=== PATIENT | male | born 1955 | race Caucasian/White ===

== ENCOUNTER 2016-05-22 12:40 | Emergency (ER) | payer MEDICARE, MEDICAID ==
[2016-05-22] MEDS ORDERED: Aspirin Low Dose CHEW TAB* 81 MG PO ONE (13:41)
[2016-05-22] MEDS ORDERED: Sucralfate TAB* 1 GM PO ONE ×2 (13:43→17:14)
[2016-05-22] MEDS ORDERED: Pantoprazole IV* 40 MG IV ONE (13:43)
[2016-05-22 14:19] LABS: Hematocrit 43 % (42-52); Hemoglobin 14.5 g/dl (14.0-18.0); Mean Corpuscular HGB Conc 34 g/dl (31-36); Mean Corpuscular Hemoglobin 30 pg (27-31); Mean Corpuscular Volume 89 fL (80-94); Mean Platelet Volume 8 um3 (7.4-10.4); Red Blood Count 4.88 10^6/ul (4.0-5.4); Red Cell Distribution Width 13 % (10.5-15); White Blood Count 12.7 10^3/ul (3.5-10.8)
--- NOTE | 2016-05-22 14:19 | RAD ---
HISTORY: Chest pain COMPARISONS: January 09, 2014 VIEWS:1: Single frontal portable view of the chest at 2:00 PM FINDINGS: LINES AND TUBES: None. CARDIOMEDIASTINAL SILHOUETTE: The cardiomediastinal silhouette is normal for portable technique. PLEURA: The costophrenic angles are sharp. No pleural abnormalities are noted. LUNG PARENCHYMA: The lungs are clear. ABDOMEN: The upper abdomen is clear. There is no subphrenic gas. BONES AND SOFT TISSUES: No bone or soft tissue abnormalities are noted. IMPRESSION: NO ACTIVE CARDIOPULMONARY DISEASE.
[2016-05-22 14:36] LABS: Albumin 3.8 g/dL (3.2-5.2); BUN/Creatinine Ratio 18.3 (8-20); Calcium 8.8 mg/dL (8.6-10.3); EGFR African American 79.7 (>60); Globulin 3.4 g/dL (2-4); Potassium 4.5 mmol/L (3.5-5.0); Total Bilirubin 0.4 mg/dL (0.2-1.0); Total Protein 7.2 g/dL (6.4-8.9)
[2016-05-22 17:40] VITALS: BP 146/84
--- NOTE | 2016-05-22 21:43 | ED ---
Bee Harry Erika, scribed for Brooks Matos MD on 05/22/16 at 1412 . HPI Chest Pain - HPI Summary HPI Summary: Patient is a 60-year-old male presenting to the ED with a CC of stabbing, lower- sternal chest pain and epigastric pain starting a few days ago. Patient reports that pain is aggravated by palpation. He states associated symptoms of dizziness , diaphoresis, and nausea intermittently. Patient reports he has not taken his psychotropic medication in 2 days due to the nausea. He denies vomiting, but notes dry heaving. FHx cancer in father - at age 53. Mother is alive at age 94. Patient is a former smoker who quit 6 months ago. - History of Current Complaint Chief Complaint: EDChestPainROMI Time Seen by Provider: 05/22/16 13:31 Hx Obtained From: Patient Onset/Duration: Started Days Ago, Atraumatic, Still Present Current Severity: Moderate Pain Intensity: 6 Pain Scale Used: 0-10 Numeric Chest Pain Location: Lower Sternal Chest Pain Radiates To:: Epigastric Character: Sharp/Stabbing Aggravating Factor(s): Other: - Palpation Associated Signs and Symptoms: Positive: Dizziness, Diaphoresis, Nausea. Negative: Vomiting - Allergy/Home Medications Allergies/Adverse Reactions: Allergies Allergy/AdvReac Type Severity Reaction Status Date / Time No Known Allergies Allergy Verified 09/03/15 10:10 PMH/Surg Hx/FS Hx/Imm Hx Endocrine/Hematology History: Denies: Other Endocrine/Hematological Disorders Cardiovascular History: Reports: Hx Hypertension - ON MEDICATION Denies: Other Cardiovascular Problems/Disorders Respiratory History: Denies: Other Respiratory Problems/Disorders GI History: Denies: Other GI Disorders History: Reports: Hx Kidney Stones - 2011 Denies: Other Problems/Disorders Musculoskeletal History: Reports: Hx Back Problems - chronic back pain. unknown cause Denies: Other Musculoskeletal History Sensory History: Reports: Hx Contacts or Glasses Denies: Hx Cataracts, Hx Eye Injury, Hx Eye Prosthesis, Hx Glaucoma, Hx Macular Degeneration, Hx Vision Problem, Hx Deafness, Hx Hearing Aid, Hx Hearing Problem, Other Sensory Impairments Opthamlomology History: Reports: Hx Contacts or Glasses Denies: Hx Cataracts, Hx Eye Injury, Hx Eye Prosthesis, Hx Glaucoma, Hx Macular Degeneration, Hx Vision Problem, Other Sensory Impairments Neurological History: Denies: Other Neuro Impairments/Disorders Psychiatric History: Reports: Hx Anxiety, Hx Depression, Hx Inpatient Treatment , Hx Community Mental Health Tx, Hx Schizophrenia, Hx Suicide Attempt Denies: Hx Attention Deficit Hyperactivity Disorder, Hx Panic Disorder, Hx Post Traumatic Stress Disorder, Hx Bipolar Disorder, Hx of Violent Episodes Against Others, Hx Substance Abuse, Other Psychiatric Issues/Disorders Comment Only: Hx Eating Disorder - poor appetite - Surgical History Surgery Procedure, Year, and Place: kidney stones 2012 Hx Anesthesia Reactions: No - Immunization History Date of Tetanus Vaccine: PT STATES UNSURE Date of Influenza Vaccine: NONE Infectious Disease History: Denies: Hx Clostridium Difficile, Hx Hepatitis, Hx Human Immunodeficiency Virus (HIV), Hx Shingles, Hx Tuberculosis, Traveled Outside the [place] in Last 30 Days - Family History Known Family History: Positive: Other - [place] - Social History Alcohol Use: None Hx Substance Use: No Substance Use Type: Reports: None Hx Tobacco Use: Yes Smoking Status (MU): Current Every Day Smoker Review of Systems Positive: Skin Diaphoresis Positive: Chest Pain Positive: Abdominal Pain - epigastrium, Nausea. Negative: Vomiting Neurological: Other - dizziness All Other Systems Reviewed And Are Negative: Yes Physical Exam Triage Information Reviewed: Yes Vital Signs On Initial Exam: Initial Vitals Temp Pulse Resp BP Pulse Ox 97.9 F 91 20 149/83 98 05/22/16 12:43 05/22/16 12:43 05/22/16 12:43 05/22/16 12:43 05/22/16 12:43 Vital Signs Reviewed: Yes Appearance: Positive: Well-Appearing, No Pain Distress Skin: Positive: Warm, Skin Color Reflects Adequate Perfusion, Dry Head/Face: Positive: Normal Head/Face Inspection Eyes: Positive: Normal ENT: Positive: Normal ENT inspection Neck: Positive: Supple, Nontender Respiratory/Lung Sounds: Positive: Clear to Auscultation, Breath Sounds Present Cardiovascular: Positive: RRR Abdomen Description: Positive: Soft, Other: - Tender epigastrium Bowel Sounds: Positive: Present Musculoskeletal: Positive: Normal Neurological: Positive: Normal Psychiatric: Positive: Affect/Mood Appropriate Diagnostics - Vital Signs Vital Signs Temp Pulse Resp BP Pulse Ox 05/22/16 14:00 11 05/22/16 13:00 14 05/22/16 12:56 14 05/22/16 12:43 97.9 F 91 20 149/83 98 - Laboratory Lab Results: Lab Results 05/22/16 05/22/16 05/22/16 Range/Units 14:10 14:10 14:10 WBC 12.7 H (3.5-10.8) 10^3/ul RBC 4.88 (4.0-5.4) 10^6/ul Hgb 14.5 (14.0-18.0) g/dl Hct 43 (42-52) % MCV 89 (80-94) fL MCH 30 (27-31) pg MCHC 34 (31-36) g/dl RDW 13 (10.5-15) % Plt Count 256 (150-450) 10^3/ul MPV 8 (7.4-10.4) um3 Neut % (Auto) 79.6 (38-83) % Lymph % (Auto) 10.7 L (25-47) % Crowley % (Auto) 9.3 H (1-9) % Eos % (Auto) 0.1 (0-6) % Baso % (Auto) 0.3 (0-2) % Absolute Neuts (auto) 10.1 H (1.5-7.7) 10^3/ul Absolute Lymphs (auto) 1.4 (1.0-4.8) 10^3/ul Absolute Monos (auto) 1.2 H (0-0.8) 10^3/ul Absolute Eos (auto) 0 (0-0.6) 10^3/ul Absolute Basos (auto) 0 (0-0.2) 10^3/ul Absolute Nucleated RBC 0 10^3/ul Nucleated RBC % 0 Sodium 134 (133-145) mmol/L Potassium 4.5 (3.5-5.0) mmol/L Chloride 103 (101-111) mmol/L Carbon Dioxide 26 (22-32) mmol/L Anion Gap 5 (2-11) mmol/L BUN 22 (6-24) mg/dL Creatinine 1.20 H (0.67-1.17) mg/dL Est GFR ( Amer) 79.7 (>60) Est GFR (Non-Af Amer) 62.0 (>60) BUN/Creatinine Ratio 18.3 (8-20) Glucose 112 H (70-100) mg/dL Lactic Acid 1.1 (0.5-2.0) mmol/L Calcium 8.8 (8.6-10.3) mg/dL Total Bilirubin 0.40 (0.2-1.0) mg/dL AST 18 (13-39) U/L ALT 27 (7-52) U/L Alkaline Phosphatase 68 (34-104) U/L Troponin I 0.00 (<0.04) ng/mL Total Protein 7.2 (6.4-8.9) g/dL Albumin 3.8 (3.2-5.2) g/dL Globulin 3.4 (2-4) g/dL Albumin/Globulin Ratio 1.1 (1-3) 05/22/16 Range/Units 16:29 WBC (3.5-10.8) 10^3/ul RBC (4.0-5.4) 10^6/ul Hgb (14.0-18.0) g/dl Hct (42-52) % MCV (80-94) fL MCH (27-31) pg MCHC (31-36) g/dl RDW (10.5-15) % Plt Count (150-450) 10^3/ul MPV (7.4-10.4) um3 Neut % (Auto) (38-83) % Lymph % (Auto) (25-47) % Crowley % (Auto) (1-9) % Eos % (Auto) (0-6) % Baso % (Auto) (0-2) % Absolute Neuts (auto) (1.5-7.7) 10^3/ul Absolute Lymphs (auto) (1.0-4.8) 10^3/ul Absolute Monos (auto) (0-0.8) 10^3/ul Absolute Eos (auto) (0-0.6) 10^3/ul Absolute Basos (auto) (0-0.2) 10^3/ul Absolute Nucleated RBC 10^3/ul Nucleated RBC % Sodium (133-145) mmol/L Potassium (3.5-5.0) mmol/L Chloride (101-111) mmol/L Carbon Dioxide (22-32) mmol/L Anion Gap (2-11) mmol/L BUN (6-24) mg/dL Creatinine (0.67-1.17) mg/dL Est GFR ( Amer) (>60) Est GFR (Non-Af Amer) (>60) BUN/Creatinine Ratio (8-20) Glucose (70-100) mg/dL Lactic Acid (0.5-2.0) mmol/L Calcium (8.6-10.3) mg/dL Total Bilirubin (0.2-1.0) mg/dL AST (13-39) U/L ALT (7-52) U/L Alkaline Phosphatase (34-104) U/L Troponin I 0.01 (<0.04) ng/mL Total Protein (6.4-8.9) g/dL Albumin (3.2-5.2) g/dL Globulin (2-4) g/dL Albumin/Globulin Ratio (1-3) Result Diagrams: 05/22/16 14:10 05/22/16 14:10 Lab Statement: Any lab studies that have been ordered have been reviewed, and results considered in the medical decision making process. - Radiology CXR Radiology Interpretation Completed By: Radiologist - IMPRESSION: NO ACTIVE CARDIOPULMONARY DISEASE. - EKG 12:46 Cardiac Rate: NL - at 88 bpm EKG Rhythm: Sinus Rhythm Re-Evaluation - Re-Evaluation First Eval Re-Evaluation Time: 17:12 Comment: Discussed all results with patient. Discussed plan of care Chest Pain Course/Dx - Course Course Of Treatment: Mr. Oliva got a lot of relief from GI medications and his W /U including two troponins was negative. - Diagnoses Provider Diagnoses: EPIGASTRIC PAIN Discharge - Discharge Plan Condition: Stable Disposition: HOME Prescriptions: Sucralfate TAB* [Carafate*] 1 gm PO QID #40 tab Patient Education Materials: Epigastric Pain (ED) Referrals: [facility] [Outside] Additional Instructions: Please follow up with your PCP. The documentation as recorded by the Bee leavitt Erika accurately reflects the service I personally performed and the decisions made by me, Brooks Matos MD.
== END 2016-05-22 17:40 | disposition home or self-care (01) ==
LOC: ED 12:40
DX: R10.13 Epigastric pain (principal); R11.0 Nausea; F17.290 Nicotine dependence, other tobacco product, uncomplicated; R61 Generalized hyperhidrosis
CPT/HCPCS: 36415; 71010; 80053; 83605; 84484; 85025; 93005; 96374; 99283; A9270-GY

== ENCOUNTER 2016-07-20 17:25 | Inpatient (IN) | payer MEDICARE, MEDICAID ==
[2016-07-20 18:39] LABS: Hematocrit 39 % (42-52); Hemoglobin 12.9 g/dl (14.0-18.0); Mean Corpuscular HGB Conc 33 g/dl (31-36); Mean Corpuscular Hemoglobin 29 pg (27-31); Mean Corpuscular Volume 88 fL (80-94); Mean Platelet Volume 10 um3 (7.4-10.4); Red Blood Count 4.49 10^6/ul (4.0-5.4); Red Cell Distribution Width 14 % (10.5-15); White Blood Count 3.9 10^3/ul (3.5-10.8)
[2016-07-20 18:42] LABS: Add Diff/Slide Review? Manual Diff Added; Comments Flag Yes
[2016-07-20 18:53] LABS: ALT 50 U/L (7-52); Albumin 3.6 g/dL (3.2-5.2); Alkaline Phosphatase 72 U/L (34-104); BUN/Creatinine Ratio 23.6 (8-20); Blood Urea Nitrogen 47 mg/dL (6-24); CO2 Carbon Dioxide 26 mmol/L (22-32); Calcium 9.1 mg/dL (8.6-10.3); Chloride 101 mmol/L (101-111); EGFR African American 44.3 (>60); EGFR Non-African American 34.5 (>60); Globulin 3.3 g/dL (2-4); Glucose 98 mg/dL (70-100); Sodium 132 mmol/L (133-145); Total Protein 6.9 g/dL (6.4-8.9)
[2016-07-20 19:03] LABS: Immature Granulocytes 13 % (0-9); Neutrophil % 56 % (38-83); Toxic Granulation 1+
[2016-07-20 19:04] LABS: Add Path Review? YES
[2016-07-20 19:14] LABS: AST 49 U/L (13-39); Anion Gap 5 mmol/L (2-11); Potassium 4.6 mmol/L (3.5-5.0)
[2016-07-20 19:32] LABS: Acetaminophen < 15 mcg/mL; Alcohol < 10 mg/dL (<10); Salicylate < 2.50 mg/dL (<30)
[2016-07-20 19:41] LABS: TSH (Thyroid Stimulating Horm) 0.64 mcIU/mL (0.34-5.60)
[2016-07-20] MEDS ORDERED: NS 0.9% 1000 ML* 1,000 ML IV ONE (20:05)
--- NOTE | 2016-07-20 22:30 | ED ---
Ramona Harry Edward, scribed for Brooks Matos MD on 07/20/16 at 1806 . Psychiatric Complaint - HPI Summary HPI Summary: A 61 y/o M presents to ED c/o acute on chronic depression onset months ago, and worsening over past few days. Associated sx: loss of appetite/decreased PO intake, weakness, diarrhea. Denies melena. Pt was seen by visiting nurse today who recommended that he come into ED for evaluation. Pt states feeling stressed. PMHx: GERD, pt on Sucralfate. - History Of Current Complaint Chief Complaint: EDGeneral Time Seen by Provider: 07/20/16 17:36 Hx Obtained From: Patient Onset/Duration: Gradual Onset, Still Present Timing: Constant Severity Initially: Moderate Severity Currently: Moderate Character: Depressed Aggravating Factor(s): Recent Stress, Medication Non-compliance Associated Signs And Symptoms: Positive: Appetite Change - Allergies/Home Medications Allergies/Adverse Reactions: Allergies Allergy/AdvReac Type Severity Reaction Status Date / Time No Known Allergies Allergy Verified 09/03/15 10:10 PMH/Surg Hx/FS Hx/Imm Hx Previously Healthy: No Endocrine/Hematology History: Denies: Other Endocrine/Hematological Disorders Cardiovascular History: Reports: Hx Hypertension - ON MEDICATION Denies: Other Cardiovascular Problems/Disorders Respiratory History: Denies: Other Respiratory Problems/Disorders GI History: Reports: Hx Gastroesophageal Reflux Disease - Given Sucralfate History: Reports: Hx Kidney Stones - 2011 Denies: Other Problems/Disorders Musculoskeletal History: Reports: Hx Back Problems - chronic back pain. unknown cause Denies: Other Musculoskeletal History Sensory History: Reports: Hx Contacts or Glasses Denies: Hx Cataracts, Hx Eye Injury, Hx Eye Prosthesis, Hx Glaucoma, Hx Macular Degeneration, Hx Vision Problem, Hx Deafness, Hx Hearing Aid, Hx Hearing Problem, Other Sensory Impairments Opthamlomology History: Reports: Hx Contacts or Glasses Denies: Hx Cataracts, Hx Eye Injury, Hx Eye Prosthesis, Hx Glaucoma, Hx Macular Degeneration, Hx Vision Problem, Other Sensory Impairments Neurological History: Denies: Other Neuro Impairments/Disorders Psychiatric History: Reports: Hx Anxiety, Hx Depression, Hx Inpatient Treatment , Hx Community Mental Health Tx, Hx Schizophrenia, Hx Suicide Attempt Denies: Hx Attention Deficit Hyperactivity Disorder, Hx Panic Disorder, Hx Post Traumatic Stress Disorder, Hx Bipolar Disorder, Hx of Violent Episodes Against Others, Hx Substance Abuse, Other Psychiatric Issues/Disorders Comment Only: Hx Eating Disorder - poor appetite - Surgical History Surgery Procedure, Year, and Place: kidney stones 2012 Hx Anesthesia Reactions: No - Immunization History Date of Tetanus Vaccine: PT STATES UNSURE Date of Influenza Vaccine: NONE Infectious Disease History: No Infectious Disease History: Denies: Hx Clostridium Difficile, Hx Hepatitis, Hx Human Immunodeficiency Virus (HIV), Hx Shingles, Hx Tuberculosis, Traveled Outside the [place] in Last 30 Days - Family History Known Family History: Positive: Other - [place] - Social History Occupation: Disabled Lives: Alone - [employer] Alcohol Use: None Hx Substance Use: No Substance Use Type: Reports: None Hx Tobacco Use: Yes Smoking Status (MU): Current Every Day Smoker Review of Systems Constitutional: Negative Eyes: Negative ENT: Negative Cardiovascular: Negative Respiratory: Negative Positive: Diarrhea, Other - pos: Loss of appetite; Negative - melena Genitourinary: Negative Musculoskeletal: Negative Skin: Negative Positive: Weakness Positive: Depressed All Other Systems Reviewed And Are Negative: Yes Physical Exam Triage Information Reviewed: Yes Vital Signs On Initial Exam: Initial Vitals Temp Pulse Resp BP Pulse Ox 98.5 F 75 17 99/57 99 07/20/16 17:28 07/20/16 17:28 07/20/16 17:28 07/20/16 17:28 07/20/16 17:28 Vital Signs Reviewed: Yes Appearance: Positive: Well-Appearing, No Pain Distress Skin: Positive: Warm, Skin Color Reflects Adequate Perfusion, Dry Head/Face: Positive: Normal Head/Face Inspection Eyes: Positive: Normal ENT: Positive: Normal ENT inspection Neck: Positive: Supple, Nontender Respiratory/Lung Sounds: Positive: Clear to Auscultation, Breath Sounds Present Cardiovascular: Positive: RRR Abdomen Description: Positive: Nontender, Soft Bowel Sounds: Positive: Present Musculoskeletal: Positive: Normal Neurological: Positive: Normal Psychiatric: Positive: Other - FLAT AFFECT - Alfredo Coma Scale Coma Scale Total: 15 Diagnostics - Vital Signs Vital Signs Temp Pulse Resp BP Pulse Ox 07/20/16 17:33 98.5 F 76 17 99/57 100 07/20/16 17:28 98.5 F 75 17 99/57 99 - Laboratory Lab Results: Lab Results 07/20/16 07/20/16 Range/Units 18:27 18:27 WBC 3.9 (3.5-10.8) 10^3/ul RBC 4.49 (4.0-5.4) 10^6/ul Hgb 12.9 L (14.0-18.0) g/dl Hct 39 L (42-52) % MCV 88 (80-94) fL MCH 29 (27-31) pg MCHC 33 (31-36) g/dl RDW 14 (10.5-15) % Plt Count 148 L (150-450) 10^3/ul MPV 10 (7.4-10.4) um3 Immature Gran % (Auto) 13 H (0-9) % Absolute Neuts (auto) 2.7 (1.5-7.7) 10^3/ul Absolute Lymphs (auto) 0.8 L (1.0-4.8) 10^3/ul Absolute Monos (auto) 0.4 (0-0.8) 10^3/ul Absolute Eos (auto) 0 (0-0.6) 10^3/ul Absolute Basos (auto) 0 (0-0.2) 10^3/ul Absolute Nucleated RBC 0 10^3/ul Neutrophils % 56 (38-83) % Band Neutrophils % 13 H (0-8) % Lymphocytes % 20 L (25-47) % Monocytes % 11 (0-13) % Toxic Granulation 1+ Normal RBC Morphology Not Reportable Hem Pathologist Commnt Pending Sodium 132 L (133-145) mmol/L Potassium 4.6 (3.5-5.0) mmol/L Chloride 101 (101-111) mmol/L Carbon Dioxide 26 (22-32) mmol/L Anion Gap 5 (2-11) mmol/L BUN 47 H (6-24) mg/dL Creatinine 1.99 H (0.67-1.17) mg/dL Est GFR ( Amer) 44.3 (>60) Est GFR (Non-Af Amer) 34.5 (>60) BUN/Creatinine Ratio 23.6 H (8-20) Glucose 98 (70-100) mg/dL Calcium 9.1 (8.6-10.3) mg/dL Total Bilirubin 0.50 (0.2-1.0) mg/dL AST 49 H (13-39) U/L ALT 50 (7-52) U/L Alkaline Phosphatase 72 (34-104) U/L Total Protein 6.9 (6.4-8.9) g/dL Albumin 3.6 (3.2-5.2) g/dL Globulin 3.3 (2-4) g/dL Albumin/Globulin Ratio 1.1 (1-3) TSH 0.64 (0.34-5.60) mcIU/mL Salicylates < 2.50 (<30) mg/dL Acetaminophen < 15 mcg/mL Serum Alcohol < 10 (<10) mg/dL Result Diagrams: 07/20/16 18:27 07/20/16 18:27 Lab Statement: Any lab studies that have been ordered have been reviewed, and results considered in the medical decision making process. - EKG 1 EKG Interpretation: 18:40 - Normal Sinus Rhythm Course/Dx - Course Course Of Treatment: Medically cleared at 20:24 for MHU Evaluation. - Differential Dx/Clinical Impression Provider Diagnosis: Psychosis, Dehydration Discharge - Discharge Plan Condition: Stable Disposition: ADMITTED TO [facility] Referrals: Jethro Delarosa MD [Primary Care Provider] - The documentation as recorded by the Ramona leavitt Edward accurately reflects the service I personally performed and the decisions made by Carlo springer Richard L, MD.
[2016-07-21] MEDS ORDERED: Al Hydrox/Mg Hydrox/Simet LIQ* 30 ML UDC PO PRN (00:19)
[2016-07-21] MEDS ORDERED: Acetaminophen TAB* 325 MG PO PRN (00:19)
[2016-07-21] MEDS ORDERED: diPHENhydraMINE PO* 50 MG PO PRN (00:20)
[2016-07-21] MEDS ORDERED: chlorproMAZINE TAB* 50 MG PO PRN (00:20)
[2016-07-21] MEDS: Vitamin THERAPEUTIC TAB PO SCH (08:50)
--- NOTE | 2016-07-21 11:46 | PN ---
Progress Note - Progress Note Note: Requested hospitalist consultation for renal issues - discussed with Dr. Rodríguez.
[2016-07-21] MEDS ORDERED: Lisinopril TAB* 10 MG PO SCH (12:00)
[2016-07-21] MEDS: Disulfiram TAB* 250 MG PO SCH (12:46)
--- NOTE | 2016-07-21 13:00 | PN ---
MHU: Group Therapy Note - Service Type Service Type: 53311 Group Psychotherapy - Cognitive Behavioral Group Therapy ( CBT):Patient was attentive and participatory in CBT programming this morning, and remained in good behavioral control. Patient expressed positive insights regarding relevant treatment interventions and goals.
[2016-07-21] MEDS: Sucralfate TAB* 1 GM PO SCH ×3 (13:44→20:29)
[2016-07-21] MEDS: Levothyroxine TAB* 50 MCG TAB PO SCH (13:47)
--- NOTE | 2016-07-21 13:49 | HP ---
HISTORY AND PHYSICAL: DATE OF ADMISSION: 07/21/16. IDENTIFYING DATA: Tao Oliva is a 61-year-old mentally disabled male with a history of chronic psychotic disorder and obsessive compulsive disorder diagnosis, alcohol dependence in full sustained remission and multiple prior psychiatric hospitalizations. He was admitted to the Psychiatric Unit after coming to the hospital emergency room by ambulance with complaint of fatigue, but on evaluation was found to have impairing psychosis. HISTORY OF PRESENT ILLNESS: Tao reports that following his last psychiatric hospitalization, he was taking a "thought disorder" medication that was "too strong" and that it was discontinued. He further reported "self medicating" by adjusting his medication regimen on his own and taking the medicines in different quantities on different days. He reports that he has been more distantly followed at [facility] recently. He reports that his main activity is "dealing with the paranoia" and that he does not have social activity or work going on. He reports extensive ideas of reference with sounds in the community and other people's conversations and lots of paranoid ideas and ideas of persecution. He expressed the thought that people are watching him all the time and that thinks like his medication and food are tainted or poisoned. He said his sleep is disorganized. He described being afraid of going to sleep at night and therefore taking medicine in the morning "to get another hour or so of sleep." He denies any suicidal activity or active suicidal thoughts but states that he has felt helpless and hopeless at times and sometimes states that simply wished he was . He reports a sad mood. He also reports anxiety, generally around paranoid concerns. He denied new health problems other than having been evaluated with GERD, apparently on an ED visit. He reports sustained sobriety with respect to alcohol and denied the use of any other illicit substances. He reports stopping smoking about 9 months ago. He was hopeful to get help in the psychiatric hospital and was interested in figuring out the best way to take his medication. PREVIOUS PSYCHIATRIC HISTORY: Multiple psychiatric hospitalizations with admissions at our facility in 1999, 2002, 2009, and 2012. He is diagnosed with schizoaffective disorder and OCD and has been a long-term patient of [facility]. Paranoid ideation has been a chronic impairing symptom. He has denied any suicide attempts but in 1985 was apparently "suicidal" and reported that he "did not go through with it." He has had multiple medication trials in the past and has since 2013 been on Clozaril augmented with Zyprexa. PAST MEDICAL HISTORY: Previous treatment for hypertension and thyroid disease, renal surgery for calculi, and GERD. ALLERGIES: No known drug allergies. OUTPATIENT MEDICATIONS: Reconciled to the best of our knowledge based on pharmacy and patient report. 1. Clozapine 200 mg each bedtime. 2. Disulfiram 1 tablet daily. 3. Levothyroxine 50 mcg daily. 4. Lisinopril 40 mg daily. 5. Olanzapine 1 tablet of 10 mg at bedtime. 6. Sucralfate 1 g q.i.d. 7. Clonazepam 1 tablet daily. 8. Lamotrigine 200 mg at bedtime. SUBSTANCE USE HISTORY: He has obtained long-term sobriety from alcohol use disorder with apparently over 20 years of sobriety. He previously accessed AA. He has used nicotine smoking products in the past, none in the last 9 months. FAMILY PSYCHIATRIC HISTORY: Previously reported his mom had mental illness and was hospitalized, which was the basis of his being placed in foster care as a youth. SOCIAL HISTORY: Tao is not close with his family. His father . He has 7 siblings and has not been in close contact with them. He is educated through some college classes and in the past has worked as a salvage laborer. He is on disability based on a mental disorder. He resides in a rented apartment alone. Previously reported having 1 friend. He reports no social or vocational activities. He has no children of his own and has never . REVIEW OF SYSTEMS: Negative for neurologic symptoms, respiratory difficulties, chest pain, current gastrointestinal distress, negative for any elimination symptoms, or musculoskeletal problems apart from his report of a subjectively arthritic knee on the right, negative for skin problems. PHYSICAL ASSESSMENT: VITAL SIGNS: Temperature is 97.7, blood pressure 121/68, pulse 76, respiratory rate 16. PHYSICAL EXAMINATION Deferred. Tao declined the examination citing the lack of subjective need and his own preference. This is a reasonable refusal and does not require followup. Tao is medically cleared out of the emergency room. He has elevated creatinine , further evaluation is required with input from hospitalist medicine consult. MENTAL STATUS EXAMINATION: A well-developed, healthy appearing, late middle- aged male, who is well-kempt in hospital scrub clothing with normal hygiene. He has normal psychomotor activity. He is appreciative and renetta, makes good eye contact. Speech is spontaneous and unpressured. Mood is described as "okay." Affect is slightly tense. It is euthymic. Thought process is loosely organized. Thought content significant for paranoid ideation , endorsement of ideas of reference. There is no suicidal or homicidal ideations. Sensorium is clear. He is alert and oriented x3. Insight and judgment is poor and impulse control is intact. ADMISSION LABORATORY STUDIES: CBC had hemoglobin of 12.9, hematocrit of 39, platelet count of 148, immature granulocytes 13%, absolute lymphocytes 0.8, band neutrophils 13%, lymphocytes 20%. Comprehensive panel had a sodium of 132 , BUN of 47, creatinine of 1.99, BUN/creatinine ratio is 23.6, AST is 49. TSH was normal. Toxicology screen was negative for Tylenol, alcohol or salicylates. CLINICAL SUMMARY: A 61-year-old male with chronic psychotic disorder, schizoaffective disorder and OCD diagnoses, multiple prior psychiatric hospitalizations and alcohol use disorder in remission. He presents with somatic complaint but also in moderate distress over chronic high levels of paranoid ideation. These are impairing and are interfering with his ability to engage in any social or other occupational activities. Additionally, he has been loosely engaged with his outpatient care team and self managing inappropriately his medication regimen. He merits psychiatric hospitalization for his safety and for his stabilization, and treatment planning. ADMISSION DIAGNOSES: 1. Schizoaffective disorder versus schizophrenia. 2. Obsessive compulsive disorder by history. 3. Alcohol use disorder, in full sustained remission. TREATMENT PLAN: Admit to the Psychiatry Unit. Code status is full. Safety checks every 15-minute intervals. Initiate comprehensive, group milieu and individual psychotherapeutic support. Medical management will involve consultation with hospitalist regarding elevated creatinine and renal condition. Medication management for now continues with the outpatient medication regimen as reconciled - based on his reported use we do not need to rechallenge him with initiation doses of clozapine and lamotrigine. Target symptoms are elevated distress, paranoid ideation, ideas of reference, dysphoria , history of wishes. Estimated length of stay is 7 days. Discharge planning will involve coordination with aftercare. The patient's strengths are his intact intellectual functioning, adequate baseline health and ability to maintain stable long-term treatment alliances. [id number]/[facility] #: [id number] [facility] NETWORKLois
[2016-07-21 15:32] LABS: BUN/Creatinine Ratio 26.3 (8-20); Calcium 9.2 mg/dL (8.6-10.3); EGFR African American 58.7 (>60); EGFR Non-African American 45.6 (>60); Potassium 4.4 mmol/L (3.5-5.0)
--- NOTE | 2016-07-21 15:41 | CONS ---
CC: Dr. Juan; Dr. Delarosa * MEDICAL CONSULTATION: DATE OF CONSULT: 07/21/16 PRIMARY CARE PROVIDER: Dr. Delarosa. REQUESTING PROVIDER: Dr. Juan. CONSULTING PROVIDER: CELESTINE Crawford SUPERVISING PHYSICIAN: Ronnell Rodríguez MD REASON FOR CONSULT: Acute kidney injury. HISTORY OF PRESENT ILLNESS: This is a 61-year-old gentleman with a history of schizoaffective disorder, as well as OCD and medical history including hypertension, hypothyroidism, what appears to be probably stage 2 chronic kidney disease, who was admitted to inpatient psychiatric unit yesterday after he was brought to the emergency department by EMS with concerns by his home health nurse for medication noncompliance and he was also complaining of some dizziness and was noted to be hypotensive in the home setting. The patient is a rather poor historian and so history is obtained from intake nursing notes as well as some direct patient history, but it sounds like he had been eating poorly for the last couple of weeks. He states that he has been complaining of some abdominal discomfort and reflux type symptoms with an acid sensation that came up to his mid chest. He states that he was seen in the emergency department with these complaints and it looks like he was prescribed sucralfate at that time. He denied any associated vomiting or diarrhea but states that really he was only drinking milk at that time and that seemed to help settle his stomach. He states that he has been getting some occasional shaking and some cold sweats that seem to get better with eating. He is not entirely clear whether he has been compliant with his home antihypertensives. He specifically states that he has been dosing his psychiatric medications according to what he feels is appropriate according to his symptoms for the day but he is prescribed lisinopril at home. When the patient reached the emergency department last night, he was noted to be mildly hypotensive with systolic pressures of 99. His heart rate was normal , however, in the mid 70s. He was afebrile and initial labs show an essentially normal CBC. Comprehensive metabolic panel shows a mild hyponatremia and evidence of acute kidney injury with a BUN of 47 and a creatinine of 1.99. His toxicology screen was negative for salicylates, acetaminophen, and alcohol. The patient did receive 1 L of normal saline in the emergency department prior to admission to the psychiatric unit. When questioned about active symptoms, the patient does admit to perhaps some mild dizziness throughout the day today. He states that he still has some occasional abdominal discomfort but he has been able to eat well today. When questioned about what he has been drinking, all he can recall is maybe 1 cup of coffee and a little bit of milk but thinks that he is forgetting something. PAST MEDICAL HISTORY: 1. Hypertension. 2. Hypothyroidism. 3. Schizoaffective disorder. 4. OCD. 5. Stage 2 chronic kidney disease. SURGICAL HISTORY: Unknown. HOME MEDICATIONS: (As prescribed - unsure of the patient compliance). 1. Clozapine 200 mg p.o. at bedtime. 2. Antabuse 250 mg p.o. daily. 3. Levothyroxine 50 mcg p.o. daily. 4. Lisinopril 40 mg p.o. daily. 5. Zyprexa 10 mg p.o. at bedtime. 6. Carafate 1 g p.o. 4 times daily. 7. Clonazepam 1 mg p.o. daily. 8. Lamictal 200 mg p.o. at bedtime. SOCIAL HISTORY: The patient has a history of alcoholism, states that he has been sober since 1992. He sounds like maybe he was in a group living situation but unsure completely. REVIEW OF SYSTEMS: All systems were reviewed and noted above in HPI and otherwise considered negative. PHYSICAL EXAM: Most recent vitals: Temperature 97.7 degrees Fahrenheit, pulse 76 beats per minute, respiratory rate 16 per minute, oxygen saturation 98% on room air, blood pressure 121/68 mmHg. General: This is a pleasant but slightly disheveled-appearing male who appears slightly older than stated age but is in no acute distress. HEENT: Head is normocephalic, atraumatic. Mucous membranes are pink and moist. Cardiovascular: Heart has a regular rate and rhythm without murmurs, rubs or gallops. Respiratory: Lungs are clear to auscultation without wheezes, crackles or rhonchi. Abdomen: Abdomen is soft with some mild epigastric discomfort. Bowel sounds are present. Extremities: There is no edema appreciated of lower extremities bilaterally. Skin: Limited exam shows no concerning rashes or lesions. Psych: The patient is alert, appropriately oriented. His ability to provide an appropriate timeline with his history is questionable. LABORATORY DATA: CBC is essentially within normal limits with a white blood cell count of 3900, hemoglobin of 12.9 g/dL, and platelet count of 148,000. Comprehensive metabolic panel shows sodium of 132, potassium 4.6, serum bicarb 26, BUN of 47, creatinine 1.99 with an estimated GFR of 34. Transaminases are within normal limits as is total bilirubin. TSH normal at 0.64. Toxicology screen negative for salicylates, acetaminophen and alcohol. IMAGING: EKG shows a sinus rhythm without acute ischemic changes. ASSESSMENT/PLAN: This is a 61-year-old gentleman with history of hypertension, hypothyroidism, and schizoaffective disorder admitted to the behavioral health unit, and hospitalist group has been asked to consult for concern of acute kidney injury. 1. Acute kidney injury - there does appear to be some chronic component. When looking at his direct labs, he seems to have stage 2 chronic kidney disease but his BUN and creatinine are certainly elevated above baseline at this time. His history seems to be one that suggests dehydration, the pattern of BUN to creatinine ratio also suggests a prerenal source. Urine studies have been ordered and are pending including a urinalysis, urine creatinine, and urine sodium to calculate fractional excretion of sodium. He did receive 1 L of normal saline in the emergency department. Labs have not been rechecked since that time. A repeat basic metabolic panel from today has been ordered and repeat labs for tomorrow as well. The patient seems to be largely asymptomatic at this time apart from perhaps some mild dizziness. Recommendations would include holding his lisinopril, repeating labs as outlined above and if he remains with BUN and creatinine much above baseline, would probably benefit from additional IV fluids. 2. Abdominal pain - the patient's history seems to be most consistent with some mild gastroesophageal reflux disease. I would recommend starting an H2 jayla twice daily. Famotidine has been ordered at this time. 3. Hypothyroidism - appears to be euthymic and recommend continuing current dose of levothyroxine. 4. Hypotension - hold lisinopril and continue to monitor blood pressure as outlined above. 5. Schizoaffective disorder and obsessive compulsive disorder - management per Psychiatry. 6. Disposition: The patient will remain on behavioral health unit. Hospitalist group will continue to follow along. Please feel free to contact our group with any additional questions or concerns. CELESTINE CRAWFORD [id number]/[facility] #: [id number] RADHA
[2016-07-21] MEDS ORDERED: Mouth Piece, Nicotine* 1 EACH CARTRIDGE ONE (16:58)
[2016-07-21] MEDS ORDERED: Nicotine Inhaler* 10 MG AMP ONE (16:58)
[2016-07-21] MEDS: Nicotine Inhaler* 10 MG AMP INH PRN (17:18)
[2016-07-21] MEDS: OLANzapine TAB* 10 MG PO SCH (20:29)
[2016-07-21] MEDS: lamoTRIgine TAB(*) 100 MG PO SCH (20:29)
[2016-07-21] MEDS: CloZAPine TAB* 100 MG TAB PO SCH (20:29)
[2016-07-21] MEDS ORDERED: Famotidine TAB* 20 MG PO SCH (21:00)
[2016-07-22] MEDS: Levothyroxine TAB* 50 MCG TAB PO SCH ×2 (06:30→09:50)
[2016-07-22 07:36] LABS: Hematocrit 40 % (42-52); Hemoglobin 12.9 g/dl (14.0-18.0); Mean Corpuscular HGB Conc 33 g/dl (31-36); Mean Corpuscular Hemoglobin 29 pg (27-31); Mean Corpuscular Volume 87 fL (80-94); Mean Platelet Volume 10 um3 (7.4-10.4); Red Blood Count 4.52 10^6/ul (4.0-5.4); Red Cell Distribution Width 14 % (10.5-15)
[2016-07-22 07:51] LABS: BUN/Creatinine Ratio 27.4 (8-20); EGFR African American 85.1 (>60); EGFR Non-African American 66.2 (>60); Potassium 4.1 mmol/L (3.5-5.0)
[2016-07-22] MEDS: Vitamin THERAPEUTIC TAB PO SCH (09:50)
[2016-07-22] MEDS: Sucralfate TAB* 1 GM PO SCH ×4 (09:50→20:35)
[2016-07-22] MEDS: Famotidine TAB* 20 MG PO SCH (09:50)
[2016-07-22] MEDS: Disulfiram TAB* 250 MG PO SCH (09:50)
--- NOTE | 2016-07-22 12:23 | PN ---
Subjective Date of Service: 07/22/16 Interval History: Patient denies any dizzy episodes. Eating and drinking well now. No c/o abd pain. He reports feeling slightly clumsy and wondering if it's related to his psychiatric medications. Otherwise offers no new complaints. Objective Active Medications: Acetaminophen (Tylenol Tab*) 650 mg PO Q4H PRN PRN Reason: PAIN or TEMP > 101 F Al Hydrox/Mg Hydrox/Simethicone (Maalox Plus*) 30 ml PO Q4H PRN PRN Reason: INDIGESTION Chlorpromazine HCl (Thorazine Tab*) 50 mg PO Q6H PRN PRN Reason: AGITATION Clozapine (Clozapine Tab*) 200 mg PO BEDTIME [facility] Last Admin: 07/21/16 20:29 Dose: 200 mg Diphenhydramine HCl (Benadryl Po*) 50 mg PO Q6H PRN PRN Reason: AGITATION Disulfiram (Antabuse Tab*) 250 mg PO DAILY [facility] Last Admin: 07/22/16 09:50 Dose: 250 mg Famotidine (Pepcid Tab*) 20 mg PO DAILY [facility] Last Admin: 07/22/16 09:50 Dose: 20 mg Lamotrigine (Lamictal Tab(*)) 200 mg PO BEDTIME [facility] Last Admin: 07/21/16 20:29 Dose: 200 mg Levothyroxine Sodium (Synthroid Tab*) 50 mcg PO 0600 [facility] Last Admin: 07/22/16 09:50 Dose: 50 mcg Multivitamins (Theragran Tab*) 1 tab PO DAILY [facility] Last Admin: 07/22/16 09:50 Dose: 1 tab Nicotine (Nicotine Inhaler*) 10 mg INH Q2H PRN PRN Reason: CRAVINGS Last Admin: 07/21/16 17:18 Dose: 10 mg Olanzapine (Zyprexa Tab*) 10 mg PO BEDTIME [facility] Last Admin: 07/21/16 20:29 Dose: 10 mg Sucralfate (Carafate*) 1 gm PO QID [facility] Last Admin: 07/22/16 12:00 Dose: 1 gm Vital Signs 07/22/16 07:35 Temperature 98.8 F Pulse Rate 71 Respiratory 16 Rate Blood Pressure 99/59 (mmHg) O2 Sat by Pulse 99 Oximetry Oxygen Devices in Use Now: None Appearance: Well appearing gentleman sitting, eating lunch in group area. Full exam was not completed today. Neurological: Alert and Oriented x 3 Result Diagrams: 07/22/16 07:11 07/22/16 07:11 Additional Lab and Data: . Laboratory Tests 07/20/16 07/21/16 07/22/16 18:27 15:02 07:11 BUN 47 H 41 H 31 H Creatinine 1.99 H 1.56 H 1.13 Est GFR ( Amer) 44.3 58.7 85.1 Assess/Plan/Problems-Billing Assessment: This is a 61 yo gentleman with schizoaffective d/o, HTN, hypothyroidism and stage II CKD currently being treated in the [facility]. Hospitalist consultation has been requested to evaluate BON. - Patient Problems (1) BON (acute kidney injury) Comment: Renal function has resolved back to near baseline Appears to have been all pre-renal due to poor oral intake No further intervention necessary (2) Schizoaffective disorder Comment: Management per psychiatric team (3) GERD (gastroesophageal reflux disease) Comment: Cont H2 jayla daily (4) HTN (hypertension) Comment: Normotensive with lisinopril held Recommend not resuming lisinopril at this time and cont to monitor BP daily If sBP remains <130 mmHg on average, no need to continue this medication at the time of discharge and he can follow up with his PCP to monitor further as an outpatient (5) Hypothyroidism Comment: Cont current dose of levothyroxine TSH WNL Status and Disposition: Hospitalist group will sign off at this time, but are happy to re-evaluate if any additional concerns arise.
--- NOTE | 2016-07-22 12:43 | PN ---
Subjective - Subjective Service Type: 07033 Hosp care 15 min low complexity Subjective: Satish reports doing okay, got a "great" night of sleep, feels "foggy" this morning. He is able to socialize a little with peers, but admits feeling paranoid about them and staff. He says he feels basically safe. He agrees with plan to regularize medication. Objective - Appearance Appearance: Well Developed/Nourished Hygiene: Normal Grooming: Well Kept - Behavior Psychomotor Activities: Normal - Attitude and Relatedness Attitude and Relatedness: Psychotically Related Eye Contact: Good - Speech Quality: Unpressured Latencies: Normal Quantity: Terse - Mood Patient's Decription of Mood: "Anxious" - Affect Observed Affect: Tense Affect Consistent with: Dysphoria - mild - Thought Process Patient's Thought Process: Coherent, Impoverished Thought Content: Yes Paranoid Ideation, No Passive Wish, No Suicidal Planning, No Homicidal Ideation - Sensorium Experiencing Hallucinations: No, Sensorium is Clear - Level of Consciousness Level of Consciousness: Alert - Impulse Control Impulse Control: Intact - Insight and Judgement Insight and Judgement: Poor Assessment - Assessment Merits Inpatient Hospitalization: For Stabilization, To Initiate Treatment, For Ongoing Evaluation, For Discharge Planning Inpatient DSM-IV Dx: 1. Schizoaffective disorder versus schizophrenia. 2. Obsessive compulsive disorder by history. 3. Alcohol use disorder, in full sustained remission. Clinical Impression: 61-year-old male with chronic psychotic disorder, schizoaffective disorder and OCD diagnoses, multiple prior psychiatric hospitalizations and alcohol use disorder in remission. He presented with somatic complaint but also in moderate distress over chronic high levels of paranoid ideation. These were impairing and were interfering with his ability to engage in any social or other occupational activities. Additionally, he has been loosely engaged with his outpatient care team and self managing (inappropriately) his medication regimen. Settling into the unit. Continues symptomatic with active paranoid ideation. Is safe on checks, adherent with routines and medications. Medical management involved consultation with hospitalist regarding elevated creatinine and renal condition - creatinine normalized, and portrait consultant signed off (appreciated). Medication management continues with the outpatient medication regimen. Goal is for stabilization based on regular medication admin., supportive milieu , better sleep hygiene. Plan - Plan Treatment Plan: Name: SATISH RODRIGUEZ Birthdate: 1955 [id number] Continued Medication Management: Continue Outpt Medication Medications: Current Medications Acetaminophen (Tylenol Tab*) 650 mg PO Q4H PRN PRN Reason: PAIN or TEMP > 101 F Al Hydrox/Mg Hydrox/Simethicone (Maalox Plus*) 30 ml PO Q4H PRN PRN Reason: INDIGESTION Chlorpromazine HCl (Thorazine Tab*) 50 mg PO Q6H PRN PRN Reason: AGITATION Clozapine (Clozapine Tab*) 200 mg PO BEDTIME [facility] Last Admin: 07/21/16 20:29 Dose: 200 mg Diphenhydramine HCl (Benadryl Po*) 50 mg PO Q6H PRN PRN Reason: AGITATION Disulfiram (Antabuse Tab*) 250 mg PO DAILY [facility] Last Admin: 07/22/16 09:50 Dose: 250 mg Famotidine (Pepcid Tab*) 20 mg PO DAILY [facility] Last Admin: 07/22/16 09:50 Dose: 20 mg Lamotrigine (Lamictal Tab(*)) 200 mg PO BEDTIME [facility] Last Admin: 07/21/16 20:29 Dose: 200 mg Levothyroxine Sodium (Synthroid Tab*) 50 mcg PO 0600 [facility] Last Admin: 07/22/16 09:50 Dose: 50 mcg Multivitamins (Theragran Tab*) 1 tab PO DAILY [facility] Last Admin: 07/22/16 09:50 Dose: 1 tab Nicotine (Nicotine Inhaler*) 10 mg INH Q2H PRN PRN Reason: CRAVINGS Last Admin: 07/21/16 17:18 Dose: 10 mg Olanzapine (Zyprexa Tab*) 10 mg PO BEDTIME [facility] Last Admin: 07/21/16 20:29 Dose: 10 mg Sucralfate (Carafate*) 1 gm PO QID [facility] Last Admin: 07/22/16 12:00 Dose: 1 gm - Discharge Plan Discharge Plan: Outpatient Follow Up
--- NOTE | 2016-07-22 13:06 | PN ---
MHU: Group Therapy Note - Service Type Service Type: [id number] Group Psychotherapy - Cognitive Behavioral Group Therapy ( CBT):Patient was attentive and participatory in CBT programming this morning, and remained in good behavioral control. Patient expressed positive insights regarding relevant treatment interventions and goals.
[2016-07-22] MEDS: CloZAPine TAB* 100 MG TAB PO SCH (20:34)
[2016-07-22] MEDS: lamoTRIgine TAB(*) 100 MG PO SCH (20:35)
[2016-07-22] MEDS: OLANzapine TAB* 10 MG PO SCH (20:35)
[2016-07-22] MEDS: Nicotine Inhaler* 10 MG AMP INH PRN (20:38)
[2016-07-23] MEDS: Sucralfate TAB* 1 GM PO SCH ×4 (08:37→21:47)
[2016-07-23] MEDS: Disulfiram TAB* 250 MG PO SCH (08:37)
[2016-07-23] MEDS: Levothyroxine TAB* 50 MCG TAB PO SCH (08:37)
[2016-07-23] MEDS: Vitamin THERAPEUTIC TAB PO SCH (08:37)
[2016-07-23] MEDS: Famotidine TAB* 20 MG PO SCH (08:37)
--- NOTE | 2016-07-23 12:27 | PN ---
Subjective - Subjective Service Type: 91989 Hosp care 15 min low complexity Subjective: Satish had no major complaints. He notes "dealing with paranoia" and it seems continuous - notes ideas of reference. That said he reports being pretty comfortable here, in good relations with peers , appreciative for care, and feeling safe. Denies problems with med. regimen. Objective - Appearance Appearance: Healthy Appearing Hygiene: Normal Grooming: Well Kept - Behavior Psychomotor Activities: Normal - Attitude and Relatedness Attitude and Relatedness: Guarded Eye Contact: Good - Speech Quality: Unpressured Latencies: Normal Quantity: Terse - Mood Patient's Decription of Mood: "Anxious" - Affect Observed Affect: Non-labile Affect Consistent with: Dysphoria - mild - Thought Process Patient's Thought Process: Coherent, Impoverished Thought Content: Yes Paranoid Ideation, No Passive Wish, No Suicidal Planning, No Homicidal Ideation - Sensorium Experiencing Hallucinations: No, Sensorium is Clear - Level of Consciousness Level of Consciousness: Alert - Impulse Control Impulse Control: Intact - Insight and Judgement Insight and Judgement: Poor Assessment - Assessment Merits Inpatient Hospitalization: For Stabilization, To Initiate Treatment, For Ongoing Evaluation, For Discharge Planning Inpatient DSM-IV Dx: 1. Schizoaffective disorder versus schizophrenia. 2. Obsessive compulsive disorder by history. 3. Alcohol use disorder, in full sustained remission. Clinical Impression: 61-year-old male with chronic psychotic disorder, schizoaffective disorder and OCD diagnoses, multiple prior psychiatric hospitalizations and alcohol use disorder in remission. He presented with somatic complaint but also in moderate distress over chronic high levels of paranoid ideation. These were impairing and were interfering with his ability to engage in any social or other occupational activities. Additionally, he has been loosely engaged with his outpatient care team and self managing (inappropriately) his medication regimen. Stable behaviorally here. Continues symptomatic with active paranoid ideation. Is safe on checks, adherent with routines and medications. Medical management involved consultation with hospitalist regarding elevated creatinine and renal condition - creatinine normalized, and senior internet sales consultant signed off (appreciated). Medication management continues with the outpatient medication regimen. Goal is for stabilization based on regular medication admin., supportive milieu , better sleep hygiene. Plan - Plan Treatment Plan: Name: SATISH RODRIGUEZ Birthdate: 1955 [id number] Continued Medication Management: Continue Outpt Medication Medications: Current Medications Acetaminophen (Tylenol Tab*) 650 mg PO Q4H PRN PRN Reason: PAIN or TEMP > 101 F Al Hydrox/Mg Hydrox/Simethicone (Maalox Plus*) 30 ml PO Q4H PRN PRN Reason: INDIGESTION Chlorpromazine HCl (Thorazine Tab*) 50 mg PO Q6H PRN PRN Reason: AGITATION Clozapine (Clozapine Tab*) 200 mg PO BEDTIME [facility] Last Admin: 07/22/16 20:34 Dose: 200 mg Diphenhydramine HCl (Benadryl Po*) 50 mg PO Q6H PRN PRN Reason: AGITATION Disulfiram (Antabuse Tab*) 250 mg PO DAILY [facility] Last Admin: 07/23/16 08:37 Dose: 250 mg Famotidine (Pepcid Tab*) 20 mg PO DAILY [facility] Last Admin: 07/23/16 08:37 Dose: 20 mg Lamotrigine (Lamictal Tab(*)) 200 mg PO BEDTIME [facility] Last Admin: 07/22/16 20:35 Dose: 200 mg Levothyroxine Sodium (Synthroid Tab*) 50 mcg PO 0600 [facility] Last Admin: 07/23/16 08:37 Dose: 50 mcg Multivitamins (Theragran Tab*) 1 tab PO DAILY [facility] Last Admin: 07/23/16 08:37 Dose: 1 tab Nicotine (Nicotine Inhaler*) 10 mg INH Q2H PRN PRN Reason: CRAVINGS Last Admin: 07/22/16 20:38 Dose: 10 mg Olanzapine (Zyprexa Tab*) 10 mg PO BEDTIME [facility] Last Admin: 07/22/16 20:35 Dose: 10 mg Sucralfate (Carafate*) 1 gm PO QID [facility] Last Admin: 07/23/16 08:37 Dose: 1 gm - Discharge Plan Discharge Plan: Outpatient Follow Up
[2016-07-23] MEDS: Nicotine Inhaler* 10 MG AMP INH PRN (12:58)
[2016-07-23] MEDS: lamoTRIgine TAB(*) 100 MG PO SCH (21:47)
[2016-07-23] MEDS: OLANzapine TAB* 10 MG PO SCH (21:47)
[2016-07-23] MEDS: CloZAPine TAB* 100 MG TAB PO SCH (21:47)
[2016-07-24 01:41] LABS: Urine Bilirubin Negative (Negative); Urine Glucose Negative (Negative); Urine Nitrite Negative (Negative)
[2016-07-24] MEDS: Levothyroxine TAB* 50 MCG TAB PO SCH (06:15)
[2016-07-24] MEDS: Vitamin THERAPEUTIC TAB PO SCH (08:43)
[2016-07-24] MEDS: Famotidine TAB* 20 MG PO SCH (08:43)
[2016-07-24] MEDS: Disulfiram TAB* 250 MG PO SCH (08:43)
[2016-07-24] MEDS: Sucralfate TAB* 1 GM PO SCH ×3 (08:43→20:17)
[2016-07-24] MEDS ORDERED: hydrOXYzine HCL TAB* 50 MG PO PRN (13:13)
--- NOTE | 2016-07-24 13:22 | PN ---
Subjective - Subjective Service Type: [id number] Hosp care 15 min low complexity Subjective: Satish is sitting alone in his room but is polite and appears eager to converse. "Should I go outside today? Is it too hot?" He denies problems with his medications and appears to be tolerating them well but he does complain of anxiety. He denies SI or HI. Objective - Appearance Appearance: Well Developed/Nourished Dysmorphic Features: No Hygiene: Normal Grooming: Fairly Well Kept - Behavior Psychomotor Activities: Normal Exhibits Abnormal Movement: No - Attitude and Relatedness Attitude and Relatedness: Cooperative Eye Contact: Fair - Speech Quality: Unpressured Latencies: Normal Quantity: Appropriate - Mood Patient's Decription of Mood: "Anxious" - Affect Observed Affect: Good Affect Consistent with: Euthymia - Thought Process Patient's Thought Process: Coherent Thought Content: Yes Paranoid Ideation, No Passive Wish, No Suicidal Planning, No Homicidal Ideation - Sensorium Experiencing Hallucinations: No, Sensorium is Clear Type of Hallucinations: Visual: No, Auditory: No, Command: No - Level of Consciousness Level of Consciousness: Alert Orientation: Yes Intact, Yes Orientated to Time, Yes Orientated to Place, Yes Orientated to Person - Impulse Control Impulse Control: Poor - Insight and Judgement Insight and Judgement: Impaired - Group Participation Particating in Group Activities: No - Medication Management Medication Management Adherence: Yes Assessment - Assessment Merits Inpatient Hospitalization: For Immediate Safety, For Stabilization Inpatient DSM-IV Dx: 1. Schizoaffective disorder versus schizophrenia. 2. Obsessive compulsive disorder by history. 3. Alcohol use disorder, in full sustained remission. Clinical Impression: 61 y.o. single, white male resident of the [facility] who has a history of chronic psychotic illness and limited adherence with outpatient treatment in the community, who is voluntarily hospitalized due to paranoia and difficulty caring for himself. Plan - Plan Treatment Plan: Name: SATISH RODRIGUEZ Birthdate: 1955 [id number] The patient is being treated with antipsychotic polypharmacy, which is his outpatient regimen, and appears to be tolerating the combination of olanzapine and clozapine without untoward effects. Will work on treatment acceptance and prepare patient for release back to the community with supports in place. Continued Medication Management: Continue Outpt Medication Medications: Current Medications Acetaminophen (Tylenol Tab*) 650 mg PO Q4H PRN PRN Reason: PAIN or TEMP > 101 F Al Hydrox/Mg Hydrox/Simethicone (Maalox Plus*) 30 ml PO Q4H PRN PRN Reason: INDIGESTION Chlorpromazine HCl (Thorazine Tab*) 50 mg PO Q6H PRN PRN Reason: AGITATION Clozapine (Clozapine Tab*) 200 mg PO BEDTIME [facility] Last Admin: 07/23/16 21:47 Dose: 200 mg Disulfiram (Antabuse Tab*) 250 mg PO DAILY [facility] Last Admin: 07/24/16 08:43 Dose: 250 mg Famotidine (Pepcid Tab*) 20 mg PO DAILY [facility] Last Admin: 07/24/16 08:43 Dose: 20 mg Hydroxyzine HCl (Atarax Tab*) 50 mg PO Q6H PRN PRN Reason: AGITATION/ANXIETY/INSOMNIA Lamotrigine (Lamictal Tab(*)) 200 mg PO BEDTIME [facility] Last Admin: 07/23/16 21:47 Dose: 200 mg Levothyroxine Sodium (Synthroid Tab*) 50 mcg PO 0600 [facility] Last Admin: 07/24/16 06:15 Dose: 50 mcg Multivitamins (Theragran Tab*) 1 tab PO DAILY [facility] Last Admin: 07/24/16 08:43 Dose: 1 tab Nicotine (Nicotine Inhaler*) 10 mg INH Q2H PRN PRN Reason: CRAVINGS Last Admin: 07/23/16 12:58 Dose: 10 mg Olanzapine (Zyprexa Tab*) 10 mg PO BEDTIME [facility] Last Admin: 07/23/16 21:47 Dose: 10 mg Sucralfate (Carafate*) 1 gm PO 0600,1100,1600,2100 [facility] - Discharge Plan Discharge Plan: Inpatient Hospitalization
[2016-07-24] MEDS: OLANzapine TAB* 10 MG PO SCH (20:17)
[2016-07-24] MEDS: lamoTRIgine TAB(*) 100 MG PO SCH (20:17)
[2016-07-24] MEDS: CloZAPine TAB* 100 MG TAB PO SCH (20:17)
[2016-07-25] MEDS: Sucralfate TAB* 1 GM PO SCH ×4 (06:26→20:11)
[2016-07-25] MEDS: Levothyroxine TAB* 50 MCG TAB PO SCH (06:27)
[2016-07-25] MEDS: Disulfiram TAB* 250 MG PO SCH (09:03)
[2016-07-25] MEDS: Famotidine TAB* 20 MG PO SCH (09:04)
[2016-07-25] MEDS: Vitamin THERAPEUTIC TAB PO SCH (09:04)
[2016-07-25] MEDS: lamoTRIgine TAB(*) 100 MG PO SCH (20:11)
[2016-07-25] MEDS: OLANzapine TAB* 10 MG PO SCH (20:11)
[2016-07-25] MEDS: CloZAPine TAB* 100 MG TAB PO SCH (20:11)
[2016-07-26] MEDS: Sucralfate TAB* 1 GM PO SCH ×4 (06:36→20:21)
[2016-07-26] MEDS: Levothyroxine TAB* 50 MCG TAB PO SCH (06:36)
[2016-07-26] MEDS: Famotidine TAB* 20 MG PO SCH (08:29)
[2016-07-26] MEDS: Vitamin THERAPEUTIC TAB PO SCH (08:29)
[2016-07-26] MEDS: Disulfiram TAB* 250 MG PO SCH (08:30)
--- NOTE | 2016-07-26 13:04 | PN ---
MHU: Group Therapy Note - Service Type Service Type: [id number] Group Psychotherapy - Cognitive Behavioral Group Therapy ( CBT):Patient was attentive and participatory in CBT programming this morning, and remained in good behavioral control. Patient expressed positive insights regarding relevant treatment interventions and goals.
[2016-07-26] MEDS: OLANzapine TAB* 10 MG PO SCH (20:22)
[2016-07-26] MEDS: CloZAPine TAB* 100 MG TAB PO SCH (20:22)
[2016-07-26] MEDS: lamoTRIgine TAB(*) 100 MG PO SCH (20:22)
[2016-07-27] MEDS: Levothyroxine TAB* 50 MCG TAB PO SCH (06:05)
[2016-07-27] MEDS: Sucralfate TAB* 1 GM PO SCH ×4 (06:05→21:06)
[2016-07-27] MEDS: Vitamin THERAPEUTIC TAB PO SCH (09:35)
[2016-07-27] MEDS: Disulfiram TAB* 250 MG PO SCH (09:35)
[2016-07-27] MEDS: Famotidine TAB* 20 MG PO SCH (09:36)
--- NOTE | 2016-07-27 11:43 | PN ---
MHU: Group Therapy Note - Service Type Service Type: [id number] Group Psychotherapy - Cognitive Behavioral Group Therapy ( CBT):Patient was attentive and participatory in CBT programming this morning, and remained in good behavioral control. Patient expressed positive insights regarding relevant treatment interventions and goals.
[2016-07-27] MEDS: CloZAPine TAB* 100 MG TAB PO SCH (21:05)
[2016-07-27] MEDS: lamoTRIgine TAB(*) 100 MG PO SCH (21:05)
[2016-07-27] MEDS: OLANzapine TAB* 10 MG PO SCH (21:06)
[2016-07-28] MEDS: Sucralfate TAB* 1 GM PO SCH ×4 (06:00→20:01)
[2016-07-28] MEDS: Levothyroxine TAB* 50 MCG TAB PO SCH (06:00)
[2016-07-28] MEDS: Famotidine TAB* 20 MG PO SCH (09:16)
[2016-07-28] MEDS: Disulfiram TAB* 250 MG PO SCH (09:16)
[2016-07-28] MEDS: Vitamin THERAPEUTIC TAB PO SCH (09:16)
--- NOTE | 2016-07-28 10:42 | PN ---
Subjective - Subjective Service Type: 58667 Hosp care 15 min low complexity Subjective: Satish reports "doing okay." He's ambivalent about his regimen - on one hand he does not want to make changes (reasonably), on the other he recognizes target symptom of paranoia continues. We went over the role of each medication. He reports stable paranoia - he recognizes it as a symptoms - he continues with ideas of reference with others' conversation but it does not obstruct his ability to relate to them, or participate in share activities. He notes reduced distress compared to prior to admission and says being around people and participating in groups (he realizes) helps. We discussed working on socialization plan (discussed with SW d/c inventory planner too) and keeping medication stable. Objective - Appearance Appearance: Well Developed/Nourished Hygiene: Normal Grooming: Fairly Well Kept - Behavior Psychomotor Activities: Normal - Attitude and Relatedness Attitude and Relatedness: Needy Eye Contact: Fair - Speech Quality: Unpressured Latencies: Normal Quantity: Appropriate - Mood Patient's Decription of Mood: "Anxious" - Affect Observed Affect: Non-labile Affect Consistent with: Euthymia - Thought Process Patient's Thought Process: Coherent, Impoverished Thought Content: Yes Paranoid Ideation, No Passive Wish, No Suicidal Planning, No Homicidal Ideation - Sensorium Experiencing Hallucinations: No, Sensorium is Clear - Level of Consciousness Level of Consciousness: Alert - Impulse Control Impulse Control: Intact - Insight and Judgement Insight and Judgement: Fair Assessment - Assessment Merits Inpatient Hospitalization: To Initiate Treatment, For Ongoing Evaluation , Consolidate Improvements, For Discharge Planning Inpatient DSM-IV Dx: 1. Schizoaffective disorder versus schizophrenia. 2. Obsessive compulsive disorder by history. 3. Alcohol use disorder, in full sustained remission. Clinical Impression: 61-year-old male with chronic psychotic disorder, schizoaffective disorder and OCD diagnoses, multiple prior psychiatric hospitalizations and alcohol use disorder in remission. He presented with somatic complaint but also in moderate distress over chronic high levels of paranoid ideation. These were impairing and were interfering with his ability to engage in any social or other occupational activities. Additionally, he has been loosely engaged with his outpatient care team and self managing (inappropriately) his medication regimen. Stable behaviorally here. Continues symptomatic with paranoid ideation. This is probably a fixed delusional pattern that will not respond further with acute care and probably will remain intact even under optimal medication regimen. He is at lower distress levels than at home, is on a more hygienic schedule, is taking medication appropriately, is safe on checks, and is involved with programming and unit routines. Medical management involved consultation with hospitalist regarding elevated creatinine and renal condition - creatinine normalized, and artist consultant signed off (appreciated). Medication management continues with the outpatient medication regimen - a partial re-challenge given his somewhat erratic use of the regimen. Goal is for stabilization is accomplished, and yield of further acute care diminishing - appropriate to proceed with d/c planning focused on increasing his support and social engagement. Plan - Plan Treatment Plan: Name: SATISH RODRIGUEZ Birthdate: 1955 [id number] Continued Medication Management: Continue Outpt Medication Medications: Current Medications Acetaminophen (Tylenol Tab*) 650 mg PO Q4H PRN PRN Reason: PAIN or TEMP > 101 F Al Hydrox/Mg Hydrox/Simethicone (Maalox Plus*) 30 ml PO Q4H PRN PRN Reason: INDIGESTION Chlorpromazine HCl (Thorazine Tab*) 50 mg PO Q6H PRN PRN Reason: AGITATION Clozapine (Clozapine Tab*) 200 mg PO BEDTIME [facility] Last Admin: 07/27/16 21:05 Dose: 200 mg Disulfiram (Antabuse Tab*) 250 mg PO DAILY [facility] Last Admin: 07/28/16 09:16 Dose: 250 mg Famotidine (Pepcid Tab*) 20 mg PO DAILY [facility] Last Admin: 07/28/16 09:16 Dose: 20 mg Hydroxyzine HCl (Atarax Tab*) 50 mg PO Q6H PRN PRN Reason: AGITATION/ANXIETY/INSOMNIA Lamotrigine (Lamictal Tab(*)) 200 mg PO BEDTIME [facility] Last Admin: 07/27/16 21:05 Dose: 200 mg Levothyroxine Sodium (Synthroid Tab*) 50 mcg PO 0600 [facility] Last Admin: 07/28/16 06:00 Dose: 50 mcg Multivitamins (Theragran Tab*) 1 tab PO DAILY [facility] Last Admin: 07/28/16 09:16 Dose: 1 tab Nicotine (Nicotine Inhaler*) 10 mg INH Q2H PRN PRN Reason: CRAVINGS Last Admin: 07/23/16 12:58 Dose: 10 mg Olanzapine (Zyprexa Tab*) 10 mg PO BEDTIME [facility] Last Admin: 07/27/16 21:06 Dose: 10 mg Sucralfate (Carafate*) 1 gm PO 0600,1100,1600,2100 [facility] Last Admin: 07/28/16 06:00 Dose: 1 gm - Discharge Plan Discharge Plan: Outpatient Follow Up
[2016-07-28] MEDS: lamoTRIgine TAB(*) 100 MG PO SCH (20:01)
[2016-07-28] MEDS: OLANzapine TAB* 10 MG PO SCH (20:01)
[2016-07-28] MEDS: CloZAPine TAB* 100 MG TAB PO SCH (20:02)
[2016-07-29] MEDS: Sucralfate TAB* 1 GM PO SCH ×4 (06:10→20:10)
[2016-07-29] MEDS: Levothyroxine TAB* 50 MCG TAB PO SCH (06:10)
[2016-07-29 07:45] LABS: Hematocrit 38 % (42-52); Hemoglobin 12.9 g/dl (14.0-18.0); Mean Corpuscular HGB Conc 34 g/dl (31-36); Mean Corpuscular Hemoglobin 29 pg (27-31); Mean Corpuscular Volume 86 fL (80-94); Mean Platelet Volume 8 um3 (7.4-10.4); Red Blood Count 4.41 10^6/ul (4.0-5.4); Red Cell Distribution Width 14 % (10.5-15); White Blood Count 8.6 10^3/ul (3.5-10.8)
[2016-07-29] MEDS: Famotidine TAB* 20 MG PO SCH (09:40)
[2016-07-29] MEDS: Vitamin THERAPEUTIC TAB PO SCH (09:40)
[2016-07-29] MEDS: Disulfiram TAB* 250 MG PO SCH (09:40)
--- NOTE | 2016-07-29 11:13 | PN ---
M[facility]: Group Therapy Note - Service Type Service Type: [id number] Group Psychotherapy - Cognitive Behavioral Group Therapy ( CBT):Patient was attentive and participatory in CBT programming this morning, and remained in good behavioral control. Patient expressed positive insights regarding relevant treatment interventions and goals.
[2016-07-29] MEDS: OLANzapine TAB* 10 MG PO SCH (20:10)
[2016-07-29] MEDS: CloZAPine TAB* 100 MG TAB PO SCH (20:10)
[2016-07-29] MEDS: lamoTRIgine TAB(*) 100 MG PO SCH (20:10)
[2016-07-30] MEDS: Levothyroxine TAB* 50 MCG TAB PO SCH (06:17)
[2016-07-30] MEDS: Sucralfate TAB* 1 GM PO SCH ×4 (06:17→20:40)
[2016-07-30] MEDS: Vitamin THERAPEUTIC TAB PO SCH (09:16)
[2016-07-30] MEDS: Famotidine TAB* 20 MG PO SCH (09:16)
[2016-07-30] MEDS: Disulfiram TAB* 250 MG PO SCH (09:16)
--- NOTE | 2016-07-30 16:12 | PN ---
Subjective - Subjective Service Type: 99812 Hosp care 15 min low complexity Subjective: Satish reports doing "the same" - "dealing with paranoia." He is interested in planning release home, feels he would be safe unto himself, and that he could cope. Denied distress, had no questions or concerns. Objective - Appearance Appearance: Well Developed/Nourished Hygiene: Normal Grooming: Well Kept - Behavior Psychomotor Activities: Normal - Attitude and Relatedness Attitude and Relatedness: Cooperative Eye Contact: Good - Speech Quality: Unpressured Latencies: Normal Quantity: Terse - Mood Patient's Decription of Mood: "Anxious" - Affect Observed Affect: Non-labile Affect Consistent with: Euthymia - Thought Process Patient's Thought Process: Impoverished Thought Content: Yes Paranoid Ideation, No Passive Wish, No Suicidal Planning, No Homicidal Ideation - Sensorium Experiencing Hallucinations: No, Sensorium is Clear - Level of Consciousness Level of Consciousness: Alert - Impulse Control Impulse Control: Intact - Insight and Judgement Insight and Judgement: Poor Assessment - Assessment Merits Inpatient Hospitalization: To Initiate Treatment, For Ongoing Evaluation , Consolidate Improvements, For Discharge Planning Inpatient DSM-IV Dx: 1. Schizoaffective disorder versus schizophrenia. 2. Obsessive compulsive disorder by history. 3. Alcohol use disorder, in full sustained remission. Clinical Impression: 61-year-old male with chronic psychotic disorder, schizoaffective disorder and OCD diagnoses, multiple prior psychiatric hospitalizations and alcohol use disorder in remission. He presented with somatic complaint but also in moderate distress over chronic high levels of paranoid ideation. These were impairing and were interfering with his ability to engage in any social or other occupational activities. Additionally, he has been loosely engaged with his outpatient care team and self managing (inappropriately) his medication regimen. Stable behaviorally here. Continues symptomatic with paranoid ideation. This is probably a fixed delusional pattern that will not respond further with acute care and probably will remain intact even under optimal medication regimen. He is at lower distress levels than at home, is on a more hygienic schedule, is taking medication appropriately, is safe on checks, and is involved with programming and unit routines. Medical management involved consultation with hospitalist regarding elevated creatinine and renal condition - creatinine normalized, and program consultant signed off (appreciated). Medication management continues with the outpatient medication regimen - a partial re-challenge given his somewhat erratic use of the regimen. Goal is for stabilization is accomplished, and yield of further acute care diminishing - appropriate to proceed with d/c planning focused on increasing his support and social engagement. Plan - Plan Treatment Plan: Name: SATISH RODRIGUEZ Birthdate: 1955 [id number] Continued Medication Management: Continue Outpt Medication Medications: Current Medications Acetaminophen (Tylenol Tab*) 650 mg PO Q4H PRN PRN Reason: PAIN or TEMP > 101 F Al Hydrox/Mg Hydrox/Simethicone (Maalox Plus*) 30 ml PO Q4H PRN PRN Reason: INDIGESTION Chlorpromazine HCl (Thorazine Tab*) 50 mg PO Q6H PRN PRN Reason: AGITATION Clozapine (Clozapine Tab*) 200 mg PO BEDTIME [facility] Last Admin: 07/29/16 20:10 Dose: 200 mg Disulfiram (Antabuse Tab*) 250 mg PO DAILY [facility] Last Admin: 07/30/16 09:16 Dose: 250 mg Famotidine (Pepcid Tab*) 20 mg PO DAILY [facility] Last Admin: 07/30/16 09:16 Dose: 20 mg Hydroxyzine HCl (Atarax Tab*) 50 mg PO Q6H PRN PRN Reason: AGITATION/ANXIETY/INSOMNIA Lamotrigine (Lamictal Tab(*)) 200 mg PO BEDTIME [facility] Last Admin: 07/29/16 20:10 Dose: 200 mg Levothyroxine Sodium (Synthroid Tab*) 50 mcg PO 0600 [facility] Last Admin: 07/30/16 06:17 Dose: 50 mcg Multivitamins (Theragran Tab*) 1 tab PO DAILY [facility] Last Admin: 07/30/16 09:16 Dose: 1 tab Nicotine (Nicotine Inhaler*) 10 mg INH Q2H PRN PRN Reason: CRAVINGS Last Admin: 07/23/16 12:58 Dose: 10 mg Olanzapine (Zyprexa Tab*) 10 mg PO BEDTIME [facility] Last Admin: 07/29/16 20:10 Dose: 10 mg Sucralfate (Carafate*) 1 gm PO 0600,1100,1600,2100 [facility] Last Admin: 07/30/16 15:58 Dose: 1 gm - Discharge Plan Discharge Plan: Outpatient Follow Up
[2016-07-30] MEDS: OLANzapine TAB* 10 MG PO SCH (20:40)
[2016-07-30] MEDS: lamoTRIgine TAB(*) 100 MG PO SCH (20:40)
[2016-07-30] MEDS: CloZAPine TAB* 100 MG TAB PO SCH (20:40)
[2016-07-31] MEDS: Vitamin THERAPEUTIC TAB PO SCH (08:43)
[2016-07-31] MEDS: Famotidine TAB* 20 MG PO SCH (08:43)
[2016-07-31] MEDS: Disulfiram TAB* 250 MG PO SCH (08:43)
[2016-07-31] MEDS: Levothyroxine TAB* 50 MCG TAB PO SCH (08:44)
[2016-07-31] MEDS: Sucralfate TAB* 1 GM PO SCH ×4 (08:44→20:20)
[2016-07-31] MEDS: lamoTRIgine TAB(*) 100 MG PO SCH (20:20)
[2016-07-31] MEDS: CloZAPine TAB* 100 MG TAB PO SCH (20:20)
[2016-07-31] MEDS: OLANzapine TAB* 10 MG PO SCH (20:20)
[2016-08-01] MEDS: Levothyroxine TAB* 50 MCG TAB PO SCH (06:05)
[2016-08-01] MEDS: Sucralfate TAB* 1 GM PO SCH ×4 (06:05→20:39)
[2016-08-01] MEDS: Famotidine TAB* 20 MG PO SCH (09:47)
[2016-08-01] MEDS: Disulfiram TAB* 250 MG PO SCH (09:47)
[2016-08-01] MEDS: Vitamin THERAPEUTIC TAB PO SCH (09:47)
[2016-08-01] MEDS: lamoTRIgine TAB(*) 100 MG PO SCH (20:39)
[2016-08-01] MEDS: CloZAPine TAB* 100 MG TAB PO SCH (20:39)
[2016-08-01] MEDS: OLANzapine TAB* 10 MG PO SCH (20:39)
[2016-08-02] MEDS: Sucralfate TAB* 1 GM PO SCH ×4 (06:00→22:02)
[2016-08-02] MEDS: Levothyroxine TAB* 50 MCG TAB PO SCH (06:00)
[2016-08-02] MEDS: Vitamin THERAPEUTIC TAB PO SCH (08:23)
[2016-08-02] MEDS: Disulfiram TAB* 250 MG PO SCH (08:23)
[2016-08-02] MEDS: Famotidine TAB* 20 MG PO SCH (08:23)
--- NOTE | 2016-08-02 08:34 | DS ---
Subjective - Subjective Service Types: [id number] Hosp [place] Day Mgmt simple under 30 min Discharge Date: 08/02/16 Subjective: Tao expressed readiness and eagerness for discharge today. He denied setbacks or concerns, apart from expecting to need a 3 day supply of medication prior to set-up of his pill dispenser. He affirmed he is safe unto himself and others. He endorsed steady experience of paranoid ideation, but low stress over it, and said it won't interfere with his taking medication as directed, accessing aftercare, or meeting his basic needs. Objective - Appearance Appearance: Healthy Appearing Hygiene: Normal Grooming: Well Kept - Behavior Psychomotor Activities: Normal - Attitude and Relatedness Attitude and Relatedness: Appropriate Eye Contact: Good - Speech Quality: Unpressured Latencies: Normal Quantity: Terse - Mood Patient's Decription of Mood: "Anxious" - Affect Observed Affect: Non-labile Affect Consistent with: Euthymia - Thought Process Patient's Thought Process: Coherent Thought Content: Yes Paranoid Ideation, No Passive Wish, No Suicidal Planning, No Homicidal Ideation - Sensorium Experiencing Hallucinations: No, Sensorium is Clear - Level of Consciousness Level of Consciousness: Alert - Impulse Control Impulse Control: Intact - Insight and Judgement Insight and Judgement: Poor Treatment Course & Assessment Clinical Course & Impression: 61-year-old male with chronic psychotic disorder, schizoaffective disorder and OCD diagnoses, multiple prior psychiatric hospitalizations and alcohol use disorder in remission. He presented with somatic complaint but also in moderate distress over chronic high levels of paranoid ideation. These were impairing and were interfering with his ability to engage in any social or other occupational activities. Additionally, he has been loosely engaged with his outpatient care team and self managing (inappropriately) his medication regimen. 08/02/16 Clear for release. Tao was consistently stable behaviorally here. He continued symptomatic with paranoid ideation. This is probably a fixed delusional pattern that will not respond robustly to acute care and probably will remain intact even under optimal medication regimen. He did make progress: he is at lower distress levels than at home, and is now on more hygienic daily routine schedule, is taking medication appropriately, is safe on checks, and was involved with programming and unit routines. Medical management involved consultation with hospitalist regarding elevated creatinine and renal condition - creatinine normalized, and fundraising consultant signed off (appreciated). Medication management continues with the outpatient medication regimen - a partial re-challenge given his somewhat erratic use of the regimen. Goal is for stabilization is accomplished, and yield of further acute care not expected. Tao is appropriate for outpatient level of care. Discharge planning focused on increasing his support and social engagement. Tao is at chronic elevated risk for suicide, violence, and harm due to inadequate self care, based on his condition and profile. At this point acute risk of harm to self/other is assessed as low on basis of his manageable symptom burden, absence of other impairing factors, and benign ideation and behavior. Clear for Discharge: Acceptable Safety Profile, Low Utility of Inpt Care Inpatient DSM-IV Dx: 1. Schizoaffective disorder versus schizophrenia. 2. Obsessive compulsive disorder by history. 3. Alcohol use disorder, in full sustained remission. Discharge Planning - Discharge Planning Discharge Plan: Outpatient Follow Up Outpatient [facility]: [facility] Recommendations for Continuing Care: Medication Management, Psychotherapy, Routine Metabolic Monitoring Medications: Current Medications Clozapine (Clozapine Tab*) 200 mg PO BEDTIME [facility] Last Admin: 08/01/16 20:39 Dose: 200 mg Disulfiram (Antabuse Tab*) 250 mg PO DAILY [facility] Last Admin: 08/02/16 08:23 Dose: 250 mg Famotidine (Pepcid Tab*) 20 mg PO DAILY [facility] Last Admin: 08/02/16 08:23 Dose: 20 mg Hydroxyzine HCl (Atarax Tab*) 50 mg PO Q6H PRN PRN Reason: AGITATION/ANXIETY/INSOMNIA Lamotrigine (Lamictal Tab(*)) 200 mg PO BEDTIME [facility] Last Admin: 08/01/16 20:39 Dose: 200 mg Levothyroxine Sodium (Synthroid Tab*) 50 mcg PO 0600 [facility] Last Admin: 08/02/16 06:00 Dose: 50 mcg Olanzapine (Zyprexa Tab*) 10 mg PO BEDTIME [facility] Last Admin: 08/01/16 20:39 Dose: 10 mg Sucralfate (Carafate*) 1 gm PO 0600,1100,1600,2100 [facility] Last Admin: 08/02/16 06:00 Dose: 1 gm Concurrent use of 2 standing antipsychotics justified on basis of failed monotherapy trials. Discharge Planning: Prescriptions provided for discharge [x] Yes [] No Follow up care details as per social work arrangements. Patient response to discharge plan: [x] eager for discharge [] agreeable with discharge plan [] ambivalent about discharge [] disagrees with discharge today
--- NOTE | 2016-08-02 14:00 | PN ---
M[facility]: Group Therapy Note - Service Type Service Type: [id number] Group Psychotherapy - Cognitive Behavioral Group Therapy ( CBT):Patient was attentive and participatory in CBT programming this morning, and remained in good behavioral control. Patient expressed positive insights regarding relevant treatment interventions and goals.
[2016-08-02] MEDS: OLANzapine TAB* 10 MG PO SCH (22:02)
[2016-08-02] MEDS: CloZAPine TAB* 100 MG TAB PO SCH (22:02)
[2016-08-02] MEDS: lamoTRIgine TAB(*) 100 MG PO SCH (22:02)
[2016-08-03] MEDS: Levothyroxine TAB* 50 MCG TAB PO SCH (06:20)
[2016-08-03] MEDS: Sucralfate TAB* 1 GM PO SCH ×2 (06:20→13:30)
[2016-08-03 07:51] LABS: HDL Cholesterol 44.7 mg/dL
[2016-08-03 08:44] VITALS: BP 151/91
[2016-08-03] MEDS: Famotidine TAB* 20 MG PO SCH (09:27)
[2016-08-03] MEDS: Disulfiram TAB* 250 MG PO SCH (09:27)
[2016-08-03] MEDS: Vitamin THERAPEUTIC TAB PO SCH (09:27)
--- NOTE | 2016-08-03 11:18 | DCNOTE ---
Subjective - Subjective Service Types: 60046 Hosp [place] Day Mgmt simple under 30 min Discharge Date: 08/03/16 Subjective: Tao is calm and cooperative. He is safe on all checks and denying thoughts of harm to self or others. He is requesting discharge to his apartment in [facility]. Objective - Appearance Appearance: Well Developed/Nourished Dysmorphic Features: No Hygiene: Normal Grooming: Fairly Well Kept - Behavior Psychomotor Activities: Normal Exhibits Abnormal Movement: No - Attitude and Relatedness Attitude and Relatedness: Cooperative Eye Contact: Fair - Speech Quality: Unpressured Latencies: Normal Quantity: Appropriate - Mood Patient's Decription of Mood: "Fine" - Affect Observed Affect: Fair Affect Consistent with: Euthymia - Thought Process Patient's Thought Process: Coherent Thought Content: No Passive Wish, No Suicidal Planning, No Homicidal Ideation, No Paranoid Ideation - Sensorium Experiencing Hallucinations: No, Sensorium is Clear Type of Hallucinations: Visual: No, Auditory: No, Command: No - Level of Consciousness Level of Consciousness: Alert Orientation: Yes Intact, Yes Orientated to Time, Yes Orientated to Place, Yes Orientated to Person - Impulse Control Impulse Control: Tenuous - Insight and Judgement Insight and Judgement: Fair - Group Participation Particating in Group Activities: Yes - Medication Management Medication Management Adherence: Yes DC Assessment - Assessment Clinical Impression: 61 y.o. single, white male resident [facility] who has a history of chronic psychotic illness and limited adherence with outpatient treatment in the community, who is voluntarily hospitalized due to paranoia and difficulty caring for himself. Merits Inpatient Hospitalization: No Inpatient DSM-IV Dx: 1. Schizoaffective disorder versus schizophrenia. 2. Obsessive compulsive disorder by history. 3. Alcohol use disorder, in full sustained remission. Discharge Planning - Discharge Planning Discharge Plan: Outpatient Follow Up [facility]: [facility] Recommendations for Continuing Care: Medication Management Medications: Current Medications Acetaminophen (Tylenol Tab*) 650 mg PO Q4H PRN PRN Reason: PAIN or TEMP > 101 F Al Hydrox/Mg Hydrox/Simethicone (Maalox Plus*) 30 ml PO Q4H PRN PRN Reason: INDIGESTION Chlorpromazine HCl (Thorazine Tab*) 50 mg PO Q6H PRN PRN Reason: AGITATION Clozapine (Clozapine Tab*) 200 mg PO BEDTIME [facility] Last Admin: 08/02/16 22:02 Dose: 200 mg Disulfiram (Antabuse Tab*) 250 mg PO DAILY [facility] Last Admin: 08/03/16 09:27 Dose: 250 mg Famotidine (Pepcid Tab*) 20 mg PO DAILY [facility] Last Admin: 08/03/16 09:27 Dose: 20 mg Hydroxyzine HCl (Atarax Tab*) 50 mg PO Q6H PRN PRN Reason: AGITATION/ANXIETY/INSOMNIA Lamotrigine (Lamictal Tab(*)) 200 mg PO BEDTIME [facility] Last Admin: 08/02/16 22:02 Dose: 200 mg Levothyroxine Sodium (Synthroid Tab*) 50 mcg PO 0600 [facility] Last Admin: 08/03/16 06:20 Dose: 50 mcg Multivitamins (Theragran Tab*) 1 tab PO DAILY [facility] Last Admin: 08/03/16 09:27 Dose: 1 tab Nicotine (Nicotine Inhaler*) 10 mg INH Q2H PRN PRN Reason: CRAVINGS Last Admin: 07/23/16 12:58 Dose: 10 mg Olanzapine (Zyprexa Tab*) 10 mg PO BEDTIME [facility] Last Admin: 08/02/16 22:02 Dose: 10 mg Sucralfate (Carafate*) 1 gm PO 0600,1100,1600,2100 [facility] Last Admin: 08/03/16 06:20 Dose: 1 gm Discharge Planning: Prescriptions provided for discharge [] Yes [] No Follow up care details as per social work arrangements. Patient response to discharge plan: [] eager for discharge [] agreeable with discharge plan [] ambivalent about discharge [] disagrees with discharge today
--- NOTE | 2016-08-03 11:58 | PN ---
M[facility]: Group Therapy Note - Service Type Service Type: [id number] Group Psychotherapy - Cognitive Behavioral Group Therapy ( CBT):Patient was attentive and participatory in CBT programming this morning, and remained in good behavioral control. Patient expressed positive insights regarding relevant treatment interventions and goals.
== END 2016-08-03 12:30 | disposition home health service (06) | DRG 885 ==
LOC: ED 17:25 → BSU 22:42
PROVIDERS: ADMIT Psychiatry & Neurology Psychiatry; ATTEND Psychiatry & Neurology Psychiatry
PROC: GZHZZZZ Group Psychotherapy (ICD-10-PCS; principal; 2016-07-21)
DX: F25.9 Schizoaffective disorder, unspecified (principal); N17.9 Acute kidney failure, unspecified; I95.9 Hypotension, unspecified; E87.1 Hypo-osmolality and hyponatremia; Z91.14 Patient's other noncompliance with medication regimen; E86.0 Dehydration; K21.9 Gastro-esophageal reflux disease without esophagitis; G89.29 Other chronic pain; M54.9 Dorsalgia, unspecified; F41.9 Anxiety disorder, unspecified; F42.9 Obsessive-compulsive disorder, unspecified; F10.21 Alcohol dependence, in remission; R40.2412 Glasgow coma scale score 13-15, at arrival to emergency department; E03.9 Hypothyroidism, unspecified; I12.9 Hypertensive chronic kidney disease with stage 1 through stage 4 chronic kidney disease, or unspecified chronic kidney disease; N18.2 Chronic kidney disease, stage 2 (mild); F32.9 Major depressive disorder, single episode, unspecified; Z87.891 Personal history of nicotine dependence; Z87.442 Personal history of urinary calculi; Z91.5 Personal history of self-harm; Z80.9 Family history of malignant neoplasm, unspecified
CPT/HCPCS: 36415; 80048; 80053; 80061; 80320; 80329; 81003; 83036; 84443; 85025; 85060; 90853; 93005; 99222; 99231; 99238; A9270-GY; G0480

== ENCOUNTER 2018-06-12 15:20 | Emergency (ER) | payer MEDICARE, MEDICAID ==
--- NOTE | 2018-06-12 15:46 | ED ---
Hypertension - HPI Summary HPI Summary: Pt is a 62 y/o male brought in by EMS who presents to the ED c/o hypertension. As per EMS, he has an at home otolaryngology physician because of his schizophrenia. Today otolaryngology physician noticed he was confused and thinks that pt has not been taking his medications properly. Pt states that a voice said dont take the medication therefore he missed his Lisinopril. He c/o confusion, dizziness, and visual hallucinations. Pt denies any CP, NGUYEN, blurry vision, auditory hallucinations, SI , or HI. BP while in room: 169/106. - History of Current Complaint Chief Complaint: EDHypertension Stated Complaint: MHE PER EMS Time Seen by Provider: 06/12/18 15:27 Hx Obtained From: Patient Onset/Duration: Still Present Timing: Constant Aggravating Factor(s): Other: - possible medication non-compliance Associated Signs & Symptoms: Dizziness, Other: - confusion Related Hx: Rx Non-Compliance - possible Current Medications: ACEI - lisinopril - Allergies/Home Medications Allergies/Adverse Reactions: Allergies Allergy/AdvReac Type Severity Reaction Status Date / Time No Known Allergies Allergy Verified 07/20/16 22:49 Home Medications: Home Medications ARIPiprazole TAB* [Abilify TAB*] 10 mg PO QAM 06/12/18 [History Confirmed 06/12] ARIPiprazole TAB* [Abilify 20 MG TAB*] 20 mg PO BEDTIME 06/12/18 [History Confirmed 06/12/18] CloZAPine TAB* 200 mg PO BEDTIME 06/12/18 [History Confirmed 06/12/18] Disulfiram TAB* [Antabuse 250 MG TAB*] 250 mg PO QAM 06/12/18 [History Confirmed 06/12/18] Famotidine TAB* [Pepcid 20 MG TAB*] 20 mg PO QAM 06/12/18 [History Confirmed 07/26] Levothyroxine TAB* [Synthroid TAB*] 50 mcg PO QAM 06/12/18 [History Confirmed ] Lisinopril TAB* [Prinivil TAB*] 5 mg PO DAILY 06/12/18 [History Confirmed ] Multivitamins/Minerals TAB* [Theragran/minerals TAB*] 1 tab PO DAILY 06/12/18 [ History Confirmed 06/12/18] Sertraline* [Zoloft*] 100 mg PO DAILY 06/12/18 [History Confirmed 06/12/18] clonazePAM TAB(*) [KlonoPIN TAB(*)] 0.5 mg PO BID 06/12/18 [History Confirmed ] PMH/Surg Hx/FS Hx/Imm Hx Endocrine/Hematology History: Denies: Other Endocrine/Hematological Disorders Cardiovascular History: Reports: Hx Hypertension - ON MEDICATION Denies: Other Cardiovascular Problems/Disorders Respiratory History: Denies: Other Respiratory Problems/Disorders GI History: Reports: Hx Gastroesophageal Reflux Disease - Given Sucralfate Denies: Other GI Disorders History: Reports: Hx Kidney Stones - 2011 Denies: Other Problems/Disorders Musculoskeletal History: Reports: Hx Back Problems - chronic back pain. unknown cause Denies: Other Musculoskeletal History Sensory History: Reports: Hx Contacts or Glasses Denies: Hx Cataracts, Hx Eye Injury, Hx Eye Prosthesis, Hx Glaucoma, Hx Macular Degeneration, Hx Vision Problem, Hx Deafness, Hx Hearing Aid, Hx Hearing Problem, Other Sensory Impairments Opthamlomology History: Reports: Hx Contacts or Glasses Denies: Hx Cataracts, Hx Eye Injury, Hx Eye Prosthesis, Hx Glaucoma, Hx Macular Degeneration, Hx Vision Problem, Other Sensory Impairments Neurological History: Denies: Other Neuro Impairments/Disorders Psychiatric History: Reports: Hx Anxiety, Hx Depression, Hx Inpatient Treatment , Hx Community Mental Health Tx, Hx Schizophrenia, Hx Suicide Attempt Denies: Hx Attention Deficit Hyperactivity Disorder, Hx Panic Disorder, Hx Post Traumatic Stress Disorder, Hx Bipolar Disorder, Hx of Violent Episodes Against Others, Hx Substance Abuse, Other Psychiatric Issues/Disorders Comment Only: Hx Eating Disorder - poor appetite - Surgical History Surgery Procedure, Year, and Place: kidney stones 2012 Hx Anesthesia Reactions: No - Immunization History Date of Tetanus Vaccine: PT STATES UNSURE Date of Influenza Vaccine: NONE Infectious Disease History: No Infectious Disease History: Denies: Hx Clostridium Difficile, Hx Hepatitis, Hx Human Immunodeficiency Virus (HIV), Hx Shingles, Hx Tuberculosis, Traveled Outside the [place] in Last 30 Days - Family History Known Family History: Positive: Other - [place] - Social History Alcohol Use: None Hx Substance Use: No Substance Use Type: Reports: None Hx Tobacco Use: Yes Smoking Status (MU): Former Smoker Amount Used/How Often: Pt has not smoked in last 30 days or used any other tobacco products either Review of Systems Negative: Blurred Vision Negative: Chest Pain Neurological: Other - confusion, dizziness Negative: Headache Positive: Other - visual hallucinations, NEGATIVE: auditory hallucinations, SI, HI All Other Systems Reviewed And Are Negative: Yes Physical Exam - Summary Physical Exam Summary: GENERAL: Patient is a well-developed and nourished M who is lying comfortable in the stretcher. Patient is not in any acute respiratory distress. HEAD AND FACE: Normocephalic EYES: PERRLA, EOMI x 2. EARS: Hearing grossly intact. MOUTH: Oropharynx within normal limits. NECK: Supple, trachea is midline, no adenopathy, no JVD, no carotid bruit. CHEST: Symmetric, no tenderness at palpation LUNGS: Clear to auscultation bilaterally. No wheezing or crackles. CVS: Regular rate and rhythm, S1 and S2 present, no murmurs or gallops appreciated. ABDOMEN: Soft, non-tender. Bowel sounds are normal. No abnormal abdominal pulsations. EXTREMITIES: Full ROM in all major joints, no edema, no cyanosis or clubbing. NEURO: Alert and oriented x 3. No acute neurological deficits. Speech is normal and follows commands. SKIN: Dry and warm PSYCH: No SI or HI Triage Information Reviewed: Yes Vital Signs On Initial Exam: Initial Vitals Temp Pulse Resp BP Pulse Ox 97.9 F 65 16 169/106 100 06/12/18 15:35 06/12/18 15:35 06/12/18 15:35 06/12/18 15:35 06/12/18 15:35 Vital Signs Reviewed: Yes - [place] Coma Scale Best Eye Response: 4 - Spontaneous Best Motor Response: 6 - Obeys Commands Best Verbal Response: 5 - Oriented Coma Scale Total: 15 Diagnostics - Vital Signs Vital Signs Temp Pulse Resp BP Pulse Ox 06/12/18 15:35 97.9 F 65 16 169/106 100 - Laboratory Result Diagrams: 06/12/18 16:43 06/12/18 16:44 Lab Statement: Any lab studies that have been ordered have been reviewed, and results considered in the medical decision making process. - Radiology CXR Radiology Interpretation Completed By: Radiologist Summary of Radiographic Findings: Stigmata of obstructive lung disease. No acute pulmonary or cardiac process evident. ED physician reviewed radiology report. - CT Brain CT CT Interpretation Completed By: Radiologist Summary of CT Findings: Negative unenhanced head CT. ED physician reviewed radiology report. - EKG 16:33 Cardiac Rate: NL - 60 bpm EKG Rhythm: Sinus Rhythm ST Segment: Normal Summary of EKG Findings: Nl axis Re-Evaluation - Re-Evaluation First Eval Re-Evaluation Time: 18:50 Change: Improved Comment: BP is improved. Still no CP or SOB. Hypertension Course/Dx - Course Course Of Treatment: Pt is a 62 y/o male brought in by EMS who presents to the ED c/o hypertension. Today otolaryngology physician noticed he was confused and thinks that pt has not been taking his medications properly. He c/o confusion, dizziness, and visual hallucinations. A physical exam revealed no SI or HI. GCS of 15. A CXR and brain CT were negative. An EKG revealed NSR 60 bpm. In the course pt was given Clonidine and Lisinopril. Bloodwork without abnormalities. Pt is hypertensive because he missed several doses of his BP medication due to confusion. Final dx of hypertension. Pt will be discharged home. I discussed results with patient, and he reports feeling better. He is hemodynamically stable and safe for discharge. Strict return precautions given and he will otherwise follow up with his PCP. - Diagnoses Provider Diagnoses: Hypertension Discharge - Sign-Out/Discharge Documenting (check all that apply): Patient Departure - Discharge Patient Received Moderate/Deep Sedation with Procedure: No - Discharge Plan Condition: Stable Disposition: HOME Patient Education Materials: Hypertension (ED) Referrals: Jethro Delarosa MD [Primary Care Provider] - (1-3 days) Additional Instructions: RETURN TO THE EMERGENCY DEPARTMENT FOR CHANGING OR WORSENING SYMPTOMS. - Billing Disposition and Condition Condition: STABLE Disposition: Home - Attestation Statements Document Initiated by Rivera: Yes Documenting Scribe: Gretchen Abernathy Provider For Whom Rivera is Documenting (Include Credential): Domingo Sanders MD Scribe Attestation: Gretchen Harry scribed for Domingo Sanders MD on 06/13/18 at 0737. Scribe Documentation Reviewed: Yes Provider Attestation: The documentation as recorded by the Gertchen leavitt accurately reflects the service I personally performed and the decisions made by me, Domingo Sanders MD Status of Scribe Document: Viewed
[2018-06-12] MEDS ORDERED: Lisinopril TAB* 10 MG PO ONE (16:02)
[2018-06-12 16:52] LABS: ABS Lymphocytes 1.1 10^3/ul (1.0-4.8); ABS Monocytes 0.4 10^3/ul (0-0.8); ABS Neutrophils 3.6 10^3/ul (1.5-7.7); Hematocrit 47 % (42-52); Hemoglobin 15.9 g/dL (14.0-18.0); Lymphocyte % 22.1 %; Mean Corpuscular HGB Conc 34 g/dL (31-36); Mean Corpuscular Hemoglobin 29 pg (27-31); Mean Corpuscular Volume 86 fL (80-94); Mean Platelet Volume 8.8 fL (7.4-10.4); Nucleated Red Blood Cells % 0.1; Platelet Count 270 10^3/uL (150-450); Red Blood Count 5.43 10^6 /uL (4.18-5.48); Red Cell Distribution Width 15 % (10.5-15); White Blood Count 5.2 10^3/uL (3.5-10.8)
[2018-06-12 17:01] LABS: INR 1.01 (0.82-1.09)
[2018-06-12 17:02] LABS: Activated Partial Thrombo Time 34.1 seconds (26.0-36.3)
[2018-06-12 17:12] LABS: Albumin 4.5 g/dL (3.2-5.2); Albumin/Globulin Ratio 1.3 (1-3); BUN/Creatinine Ratio 15.1 (8-20); Calcium 9.9 mg/dL (8.6-10.3); EGFR African American 99.9 (>60); EGFR Non-African American 82.6 (>60); Globulin 3.4 g/dL (2-4); Potassium 4.2 mmol/L (3.5-5.0); Total Bilirubin 0.4 mg/dL (0.2-1.0); Total Protein 7.9 g/dL (6.4-8.9)
[2018-06-12] MEDS ORDERED: cloNIDine TAB* 0.1 MG PO ONE (17:16)
[2018-06-12] MEDS ORDERED: NS 0.9% 1000 ML** 1,000 ML IV ONE (19:04)
[2018-06-13 00:57] VITALS: BP 103/67
== END 2018-06-13 00:52 | disposition home or self-care (01) ==
LOC: ED 15:20
DX: I10 Essential (primary) hypertension (principal); K21.9 Gastro-esophageal reflux disease without esophagitis; F41.9 Anxiety disorder, unspecified; F32.9 Major depressive disorder, single episode, unspecified; F20.9 Schizophrenia, unspecified
CPT/HCPCS: 36415; 70450; 71045; 80053; 83605; 83880; 84484; 85025; 85610; 85730; 93005; 96360; 96361; 99285; A9270-GY